=== PATIENT | female | born 1935 | race African-American/Black ===

== ENCOUNTER 2017-06-19 16:43 | Inpatient (IN) ==
[2017-06-19] MEDS ORDERED: SODIUM CHLORIDE 0.9% 1,000 ML IV STA (17:34)
--- NOTE | 2017-06-19 17:35 | Emergency Department Note ---
Arrival - Arrival Chief Complaint: Non-Specific Stated Complaint: hypotension Mode of Arrival: Stretcher Limitations: No Limitations Source: Patient, Old Records Reviewed, RN Notes Reviewed Time Seen by Provider: 06/19/17 17:16 - History of Present Illness HPI Narrative: The patient was transferred here from [facility] for hypotension. She was admitted to the hospital there last week for nausea and vomiting and decreased intake. She was discharged 4 days ago but went back to the hospital today for nausea and decreased intake. There she was found to be hypotensive. The patient denies any fever, cough, dyspnea, chest pain or other symptoms. Allergies/Adverse Reactions: Allergies Allergy/AdvReac Type Severity Reaction Status Date / Time peach Allergy Unknown/Unable Verified 10/15/16 15:44 to obtain Home Medications: Home Medications Medication Instructions Recorded Confirmed Type Gabapentin 600 mg PO TID 10/15/16 06/19/17 History Letrozole 2.5 mg PO DAILY 10/15/16 06/19/17 History Levothyroxine Sodium 50 mcg PO QAM 10/15/16 06/19/17 History Furosemide Tab [Lasix Tab] 20 mg PO DAILY 06/19/17 06/19/17 History Lisinopril 20 mg PO DAILY 06/19/17 06/19/17 History Sertraline HCl 50 mg PO DAILY 06/19/17 06/19/17 History metFORMIN [Glucophage] 500 mg PO BID 06/19/17 06/19/17 History Hydrocodone/Acetaminophen 1 each PO DAILY PRN #30 06/26/17 Rx [Hydrocodon-Acetaminophn 10-325] Morphine Sulfate [Morphine Sulfate 15 mg PO BID #60 06/26/17 Rx ER] Ondansetron HCl 4 mg PO Q8H PRN #100 06/26/17 Rx Temazepam 30 mg PO BEDTIME #60 06/26/17 Rx Medical,Surgical,& Family Hx - Social History Smoking Status: Never smoker Exam Physical Examination: GENERAL: Alert. No acute distress. HEENT: Normocephalic and atraumatic. There is no nasal drainage. No pharyngeal erythema or exudate. NECK: Normal inspection. Supple. No lymphadenopathy or meningismus. LUNGS: No respiratory distress. Clear to auscultation bilaterally, no wheezes, rales or rhonchi. HEART: Regular rate and rhythm. ABDOMEN: Soft, nontender and nondistended with normoactive bowel sounds. BACK: Normal inspection. SKIN: Color normal. Warm and dry. EXTREMITIES: Nontender. Normal range of motion. No pedal edema. NEUROLOGICAL/PSYCHIATRIC: Alert and oriented -3 with normal mood and affect. Cranial nerves normal. No motor or sensory deficit. Vital Signs: Vital Signs Temperature 96.1 F L 06/26/17 08:05 Pulse Rate 112 H 06/26/17 08:05 Respiratory Rate 20 06/26/17 08:05 Blood Pressure 112/51 06/26/17 08:05 O2 Sat by Pulse Oximetry 92 L 06/26/17 08:05 Course - Reevaluation(s) Reevaluation #1: The patient is still markedly hypotensive here. It appears that she has received at least 1500 cc of fluids at [facility] and probably another 500 cc or 1000 cc in route. I am going to go ahead and start her on Moses-Synephrine. Time: 17:49 Reevaluation #2: Patient's pressure is still low on Moses-Synephrine. We will go up again. I discussed the patient with the hospitalist service who will see her and admit. Time: 19:34 Results - Labs CBC & BMP: 06/22/17 04:25 06/22/17 04:25 - Impressions CT from January of this year shows: New small patchy nodular densities in the right upper lobe which could be inflammatory in nature or related to some new small pulmonary metastases which have developed since the comparison study. Chronic pulmonary embolus which is progressive compared to the previous study Continued osteoblastic metastatic disease. Please refer to the scheduled nuclear medicine bone scan from the same day for further information Critical Care Time Critical Care Time: Yes (Patient very hypotensive. Required close monitoring and pressors) Total Critical Care Time: 45 Disposition Clinical Impression: Acute renal failure, Hyperkalemia, Hypotension, Metastatic breast cancer Case discussed with: patient, patient's family Disposition: Still a Patient Condition: Guarded New Prescriptions: Rx's Medication Instructions Recorded Hydrocodone/Acetaminophen 1 each PO DAILY PRN #30 06/26/17 [Hydrocodon-Acetaminophn 10-325] Morphine Sulfate [Morphine Sulfate 15 mg PO BID #60 06/26/17 ER] Ondansetron HCl 4 mg PO Q8H PRN #100 06/26/17 Temazepam 30 mg PO BEDTIME #60 06/26/17 Time of Disposition: 19:35
[2017-06-19] MEDS ORDERED: PHENYLEPHRINE DRIP 40 MG/250 ML PREMIX IV ONE (17:56)
--- NOTE | 2017-06-19 18:05 | XRay Report ---
XR KUB Indication: Nausea vomiting Comparison: None available Findings: No free fluid or free air seen. The bowel gas pattern appears within normal limits. No abnormal calcifications are present. No other abnormality is identified. Impression: No evidence of acute process demonstrated. PROCEDURE INTERPRETED AT [facility] DEPARTMENT OF RADIOLOGY Final Report Signed by: Dr. Travis Streeter
--- NOTE | 2017-06-19 18:05 | XRay Report ---
XR chest 1V portable Indication: Dyspnea Comparison: CT chest 02 February 2017 Findings: The heart and mediastinum are normal in size and configuration. The pulmonary vascularity is normal in caliber. There are some prominent interstitial pulmonary density. No other lung infiltrates, effusions, pneumothorax or other abnormality is demonstrated. Impression: Prominent interstitial pulmonary density, could indicate pneumonitis. PROCEDURE INTERPRETED AT [facility] DEPARTMENT OF RADIOLOGY Final Report Signed by: Dr. Travis Streeter
[2017-06-19 18:20] LABS: Basophils % 0.6 % (0.0-0.8); Hematocrit 36.3 VOL% (35.7-47.0); Hemoglobin 11.6 GM/DL (12.0-16.0); Immature Granulocytes % 0.8 %; Immature Granulocytes Absolute 0.04 #; Lymphocytes # 1.7 10*3/uL (1.4-4.0); Mean Corpuscular Hemoglobin 30 PG (27-34); Mean Corpuscular Volume 92.8 FL (87-102); Mean Platelet Volume 11.3 FL (9.6-12.0); Monocytes # 0.2 10*3/uL (0.11-0.8); Monocytes % 3.9 % (1.7-12.7); NRBC # 0.03 10*3/uL; Neutrophils # 2.9 10*3/uL (1.4-7.4); Neutrophils % 59.7 % (38.7-73.9); Platelet Count 192 T/CUMM (130-400); Red Blood Count 3.91 MC/CUMM (3.8-5.5); Red Cell Distribution Width 17.6 % (9.3-17.3); White Blood Count 4.9 T/CUMM (4-12)
[2017-06-19] MEDS: PHENYLEPHRINE DRIP 40 MG/250 ML PREMIX IV SCH (18:21)
[2017-06-19 18:40] LABS: Albumin 2.9 G/DL (3.4-5.0); Bilirubin,Total 0.4 MG/DL (0.2-1.0); CKMB % 1.5 %; Calcium 7.8 MG/DL (8.5-10.1); Magnesium 1.8 MG/DL (1.8-2.4); Osmolality,Calculated 285.5 MOS/KG (273-304); Potassium 5.5 MMOL/L (3.5-5.1); Total Protein 6.4 G/DL (6.4-8.3)
[2017-06-19 18:41] LABS: Troponin I Only 0.251 NG/ML (0.00-0.045)
[2017-06-19] MEDS ORDERED: NOREPINEPHRINE 4 MG/4 ML VIAL IV ONE (20:06)
--- NOTE | 2017-06-19 20:17 | Hospitalist History & Physical ---
Assessment and Plan (1) Hypovolemic shock Status: Acute Assessment and plan: Patient looks dry, lethargic and profoundly hypotensive. No history of fever, white count is not high but patient is hypothermic so sepsis can not be completely ruled out.Other possibilities include-ACS, PE, opoiod over use Plan Admit to the unit Continue IVF Continue with pressors- patient now on Moses and Levophed IV Merrem/Vacomycin Panculture ABG Echocardiogram Narcan x1 Ddimer Serial cardiac enzymes Hold all bp meds for now. Current Visit: Yes (2) Acute renal failure Status: Acute Assessment and plan: Not sure what her underlying renal function is Plan IVF Avoid Nephrotoxics Renal USS Nephrology consult Current Visit: Yes (3) Hyperkalemia Status: Acute Assessment and plan: -mild, most likely due to renal failure Will give Kayexalatex1, repeat levels Current Visit: Yes (4) Cardiac enzymes elevated Status: Acute Assessment and plan: most likely due to profound hypotension -Serial cardiac enzymes -Echo, EKG cardiology to see Current Visit: Yes (5) Altered mental status Status: Acute Assessment and plan: most likely multifactorial- dehydration, possible sepsis to r/o Acute CVA vs metastasis from underlying breast cancer. Plan CT head Current Visit: Yes (6) Metastatic breast cancer Status: Acute Assessment and plan: s/p chemo. Plan: follow CT head to r/o mets. CT chest Current Visit: Yes (7) Diabetes Status: Acute Assessment and plan: continue to monitor blood sugar levels, place on SSC insulin and get an HbA1c level Current Visit: Yes History of Present Illness History of present illness: Ms. Mesa is a 81 year old female with a history of metastatic breast cancer s/ p chemo who was discharged from the hospital last week after she was admitted for nausea and vomiting. She was treated and sent back home two days after. According to family, she was a little better but stil light headed and this morning, she became progressively lethargic, somnolent and was brought to the ER for evaluation. Upon arrival, she was found to be profoundly weak, hypotensive in the 50s/40s. She was started on IVF boluses, Moses drip and when I saw her she was on 60mcgs with a systolic blood pressure in the 50s-60s after a total of about 2500cc of fluids. She had not made urine, she was moaning and groaning. It was difficult to get a history from her but family members present in the room affirmed her full code status. She will be getting more fluids and Levophed will be added. She may be intubated at the minimum for airway protection if condition worsens and admitted to the unit for closer monitoring. Her prognosis is guarded, family members are aware.We will also give some Narcan. Home Medications Medication Instructions Recorded Confirmed Type Gabapentin [Gabapentin] 600 mg PO TID 10/15/16 06/19/17 History Letrozole [Letrozole] 2.5 mg PO DAILY 10/15/16 06/19/17 History Levothyroxine Sodium 50 mcg PO QAM 10/15/16 06/19/17 History Simvastatin [Zocor] 40 mg PO DAILY 10/15/16 06/19/17 History Temazepam [Temazepam] 30 mg PO BEDTIME 10/15/16 06/19/17 History Aspirin EC Tab 81 mg PO DAILY 06/19/17 06/19/17 History Furosemide Tab [Lasix Tab] 20 mg PO DAILY 06/19/17 06/19/17 History HydrOXYzine PAMOATE CAP [Vistaril 25 mg PO Q8H PRN 06/19/17 06/19/17 History Cap] Hydrocodone/Acetaminophen 1 each PO DAILY PRN 06/19/17 06/19/17 History [Hydrocodon-Acetaminophn 10-325] Lisinopril 20 mg PO DAILY 06/19/17 06/19/17 History Morphine Sulfate [Morphine Sulfate 15 mg PO BID 06/19/17 06/19/17 History ER] Ondansetron HCl 4 mg PO Q8H PRN 06/19/17 06/19/17 History Propranolol HCl [Propranolol Tab] 40 mg PO BID 06/19/17 06/19/17 History Sertraline HCl 50 mg PO DAILY 06/19/17 06/19/17 History metFORMIN [Glucophage] 500 mg PO BID 06/19/17 06/19/17 History Allergies Allergy/AdvReac Type Severity Reaction Status Date / Time peach Allergy Unknown/Unable Verified 10/15/16 15:44 to obtain Medical,Surgical,& Family Hx - Medical History Cardio: History of: Hypertension - Social History Smoking Status: Never smoker Frequency of Alcohol Use: None Type of Drug Use: None Exam - Constitutional Vitals: Period Temp Pulse Resp BP Sys/Liu Pulse Ox Last 24 Hr 96.8 F-96.8 F 73-73 18-18 56-56/40-40 94 Results - Labs CBC & BMP: 06/19/17 17:55 06/19/17 17:55
[2017-06-19] MEDS ORDERED: NALOXONE 0.4 MG/ML VIAL IV STA (20:18)
[2017-06-19] MEDS ORDERED: SODIUM POLYSTYRENE SULFATE 15 GM/60 ML BOTTLE PO STA (20:21)
[2017-06-19] MEDS ORDERED: SODIUM POLYSTYRENE SULFATE 15 GM/60 ML BOTTLE ONE (20:40)
[2017-06-19] MEDS ORDERED: NALOXONE 0.4 MG/ML VIAL ONE (20:40)
[2017-06-19 20:50] LABS: ABG Base Excess -6.5 MMOL/L (-2.5-2.5); ABG Oxygen Saturation 93.2 % (95-100); ABG PO2 81.2 MM HG (80-95); ABG TCO2 22.4 MMOL/L (23-27); Allen Test Positive
[2017-06-19 20:52] LABS: ABG PCO2 69.3 MM HG (35-48); ABG PH 7.146 (7.35-7.45)
[2017-06-19] MEDS ORDERED: NOREPINEPHRINE 8 MG in SODIUM CHLORIDE 0.9% 242 ML IV SCH (21:00)
[2017-06-19] MEDS ORDERED: PHENYLEPHRINE DRIP 40 MG/250 ML PREMIX IV SCH (21:42)
[2017-06-19] MEDS ORDERED: ALBUTEROL 2.5 MG/3 ML NEB RESP TX PRN (21:42)
[2017-06-19] MEDS ORDERED: GLUCAGON 1 MG VIAL IM PRN (21:42)
[2017-06-19] MEDS ORDERED: DEXTROSE 50% 25 GM/50 ML VIAL IV PRN (21:42)
[2017-06-19] MEDS ORDERED: SODIUM CHLORIDE 0.9% 1,000 ML IV SCH (21:42)
[2017-06-19] MEDS: ENOXAPARIN 30 MG/0.3 ML SYRINGE SUBCUT SCH (22:32)
[2017-06-19] MEDS: PANTOPRAZOLE 40 MG VIAL IV SCH (22:33)
[2017-06-19] MEDS: MEROPENEM 500 MG in SODIUM CHLORIDE 0.9% 100 ML IV SCH (22:40)
[2017-06-19] MEDS ORDERED: VANCOMYCIN INJ 1,250 MG in SODIUM CHLORIDE 0.9% 250 ML IV SCH (23:00)
[2017-06-20] MEDS: INSULIN REGULAR 100 UNIT/ML SUBCUT SCH ×4 (00:48→18:02)
[2017-06-20 00:54] LABS: INR 1.2; PT Patient Result 13.3 SECS
[2017-06-20] MEDS ORDERED: NALOXONE 0.4 MG/ML VIAL IV ONE ×4 (01:56→19:20)
[2017-06-20] MEDS: NALOXONE 0.4 MG/ML VIAL IV SCH ×3 (02:03→07:22)
[2017-06-20 03:37] LABS: ABG Base Excess -6.6 MMOL/L (-2.5-2.5); ABG HCO3 21.8 MMOL/L (20-26); ABG Oxygen Saturation 90.8 % (95-100); ABG PCO2 57.1 MM HG (35-48); ABG PO2 65.8 MM HG (80-95); ABG TCO2 23.6 MMOL/L (23-27); Allen Test Positive
[2017-06-20 05:29] LABS: ABG Base Excess -7.1 MMOL/L (-2.5-2.5); ABG HCO3 18.6 MMOL/L (20-26); ABG Oxygen Saturation 90.3 % (95-100); ABG PO2 66.3 MM HG (80-95); ABG TCO2 19.8 MMOL/L (23-27); Allen Test Positive; Pt O2 Delivery Device BIPAP
[2017-06-20 05:31] LABS: ABG PH 7.207 (7.35-7.45)
[2017-06-20] MEDS: PHENYLEPHRINE DRIP 40 MG/250 ML PREMIX IV SCH ×3 (07:46→13:15)
[2017-06-20] MEDS ORDERED: LACTULOSE 20 GM/30 ML UDCUP PO ONE (08:01)
--- NOTE | 2017-06-20 09:06 | CT Report ---
CT brain Indication: Altered mental status Comparison: 16 Apr 2016 Technique: Axial CT imaging of the brain is performed without contrast with 3 mm increments. Findings: No evidence of hemorrhage, mass mass effect midline shift or acute infarct seen. There is moderate diffuse cerebral atrophy. There are areas of decreased density seen within the white matter. Otherwise the brain parenchyma attenuation and differentiation appears within normal limits. The ventricles and cisterns are normal in caliber. No cranial or skull base abnormality is identified. Impression: No evidence of acute process or interval change. This CT exam was performed using one or more the following dose reduction techniques: Automated exposure control, adjustment of the MA and/or KV according to patient size, or use of iterative reconstruction technique. PROCEDURE INTERPRETED AT [facility] DEPARTMENT OF RADIOLOGY Final Report Signed by: Dr. Travis Streeter
--- NOTE | 2017-06-20 09:16 | Hospitalist Progress Note ---
Assessment and Plan (1) Hypovolemic shock Status: Acute Assessment and plan: Patient is slowly improving with IVF ,pressors and Narcan. Plan Continue IVF, Moses Continue with IV Merrem/Vacomycin follow cultures, Echocardiogram, CT chest report, CBC Continue to hold all bp meds and opoiods for now. Current Visit: Yes (2) Acute renal failure Status: Acute Assessment and plan: Not sure what her underlying renal function is Plan Continue with IVF Avoid Nephrotoxics Follow Renal USS Follow Nephrology consult BMP in am Current Visit: Yes (3) Hyperkalemia Status: Acute Assessment and plan: -mild, most likely due to renal failure s/p Kayexalatex1, follow repeat levels Current Visit: Yes (4) Cardiac enzymes elevated Status: Acute Assessment and plan: most likely due to profound hypotension -Serial cardiac enzymes -Follow Echo, EKG cardiology to see Current Visit: Yes (5) Altered mental status Status: Acute Assessment and plan: most likely multifactorial- dehydration, possible sepsis, opoiod overuse . Improved with Narcan, IVF and IV antibiotics. CT head showed no acute changes or metastasis from underlying breast cancer. Plan Follow cultures Current Visit: Yes (6) Metastatic breast cancer Status: Acute Assessment and plan: s/p chemo.CT head showed no acute changes. Plan: follow CT chest Current Visit: Yes (7) Diabetes Status: Acute Assessment and plan: continue to monitor blood sugar levels, place on SSC insulin. HbA1c level- 6.7 Current Visit: Yes (8) Respiratory failure Status: Acute Assessment and plan: Acute Hypoxemic, Hypercapnic resp failure Plan continue with BIPAP and Iv antibiotics Follow CT chest and Pulmonology consult. Current Visit: Yes Hospitalist: Subjective Interval history: Patient is an 81yr old lady with metastatic breast cancer s/p chemo who is a full code admitted yesterday with AMS and severe hypotension. Her mental status improved with narcan in the ER but still remains on pressors. Levophed has been weaned off but she is still on about 160mcgs of Moses. This morning she was talking, had a BIPAP on which was placed overnight. Her blood pressure is the early 100s/40s-50s. Exam - Constitutional Vitals: Period Temp Pulse Resp BP Sys/Liu Pulse Ox Last 24 Hr 96.8 F-98 F 67-73 13-22 56-135/40-98 94-100 General appearance: no acute distress, morbidly obese, other (BIPAP in place) - Respiratory Respiratory exam: Present: decreased breath sounds - Cardiovascular Cardiovascular exam: Present: regular rate and rhythm - GI/Abdominal GI/Abdominal exam: Present: normal bowel sounds - Extremities Exam Extremities exam: Present: normal inspection - Neurological Exam Neurological exam: Present: alert, oriented X3 Results - Labs CBC & BMP: 06/19/17 17:55 06/19/17 17:55 Lab Results: I have reviewed the past 24 hour labs
--- NOTE | 2017-06-20 09:25 | EKG Report ---
Stationary ECG Study [facility] Test Date: 06/20/2017 9:09:41 AM Pat Name: HARLAN BOX Department: Room: 107 Gender: F Load Mixer: : [id number] Requested by: Shima Vizcaino Order Number: [id number] Reading MD: GISSEL JEREZ Intervals [place] Rate: 70 P: 61 ME: 156 QRS: 85 QRSD: 90 T: 218 QT: 404 QTc: 425 Interpretive Statements SINUS RHYTHM ST DEVIATION AND MODERATE T-WAVE ABNORMALITY Electronically Signed On 06-21-17 18:29:18 CDT by GISSEL JEERZ [email or web address]
--- NOTE | 2017-06-20 09:43 | Pulmonology Consult Note ---
Assessment and Plan (1) Acute renal failure Status: Acute Assessment and plan: The patient's creatinine is up to 3.3. Current Visit: Yes (2) Metastatic breast cancer Status: Acute Assessment and plan: Patient is undergoing chemotherapy for metastatic breast cancer. It is unclear if the lesions in her lungs are metastases or inflammation. Current Visit: Yes (3) Hypovolemic shock Status: Acute Assessment and plan: The patient is hypotensive and is getting fluids and pressors. Current Visit: Yes (4) Diabetes Status: Acute Assessment and plan: Her glucose is 126 yesterday. Current Visit: Yes (5) Respiratory failure Status: Acute Assessment and plan: The patient is overweight and does have some CO2 retention. She looks comfortable on BiPAP. She does have bilateral infiltrates. Current Visit: Yes (6) Bilateral pulmonary infiltrates on chest x-ray Status: Acute Assessment and plan: The patient has bilateral infiltrates that could be pulmonary metastasis or inflammation. She will be covered for infection and will add steroids. She certainly could do poorly. Current Visit: Yes History of Present Illness Chief complaint: Shortness of breath History of present illness: Ms. Mesa is a 81 year old black female that has a history of metastatic breast cancer and is followed by Dr. Boo. She says she is only on oral therapy for breast cancer. She is a lifetime non-smoker. She has no history of previous lung disease but does have hypertension. She is also a diabetic. Last week she apparently had nausea and vomiting and was dehydrated and got some fluids. She came in yesterday with lethargy and weakness and has been significantly hypotensive. She has worsening renal failure and is requiring pressors now. She does have bilateral infiltrates on her CT. She does not think she has had any fever or increased sputum production. She was taken a lot of medicines and did require Narcan yesterday. She is now on BiPAP. She says she is getting her breath okay and is awake. She looks like she is breathing comfortably on BiPAP. Home Medications Medication Instructions Recorded Confirmed Type Gabapentin [Gabapentin] 600 mg PO TID 10/15/16 06/19/17 History Letrozole [Letrozole] 2.5 mg PO DAILY 10/15/16 06/19/17 History Levothyroxine Sodium 50 mcg PO QAM 10/15/16 06/19/17 History Simvastatin [Zocor] 40 mg PO DAILY 10/15/16 06/19/17 History Temazepam [Temazepam] 30 mg PO BEDTIME 10/15/16 06/19/17 History Aspirin EC Tab 81 mg PO DAILY 06/19/17 06/19/17 History Furosemide Tab [Lasix Tab] 20 mg PO DAILY 06/19/17 06/19/17 History HydrOXYzine PAMOATE CAP [Vistaril 25 mg PO Q8H PRN 06/19/17 06/19/17 History Cap] Hydrocodone/Acetaminophen 1 each PO DAILY PRN 06/19/17 06/19/17 History [Hydrocodon-Acetaminophn 10-325] Lisinopril 20 mg PO DAILY 06/19/17 06/19/17 History Morphine Sulfate [Morphine Sulfate 15 mg PO BID 06/19/17 06/19/17 History ER] Ondansetron HCl 4 mg PO Q8H PRN 06/19/17 06/19/17 History Propranolol HCl [Propranolol Tab] 40 mg PO BID 06/19/17 06/19/17 History Sertraline HCl 50 mg PO DAILY 06/19/17 06/19/17 History metFORMIN [Glucophage] 500 mg PO BID 06/19/17 06/19/17 History Allergies Allergy/AdvReac Type Severity Reaction Status Date / Time peach Allergy Unknown/Unable Verified 10/15/16 15:44 to obtain - Constitutional Constitutional: Present: fatigue, weakness. Absent: chills, fever(s) - EENT Eyes: Absent: loss of vision Ears: Absent: decreased hearing Nose, mouth and throat: Absent: dysphagia, headache(s), sinus pressure - Cardiovascular Cardiovascular: Present: chest pain at rest, dyspnea - Respiratory Respiratory: Present: cough. Absent: wheezing, change in phlegm color - Gastrointestinal Gastrointestinal: Present: nausea, vomiting. Absent: abdominal pain, change in bowel habits - Genitourinary Genitourinary: Absent: difficulty urinating, hematuria - Musculoskeletal Musculoskeletal: Present: muscle weakness. Absent: arthralgias - Neurological Neurological: Absent: abnormal speech, focal weakness Exam (Pulmonay) H&P - Constitutional Vitals: Period Temp Pulse Resp BP Sys/Liu Pulse Ox Last 24 Hr 96.8 F-98 F 67-73 13-22 56-135/40-98 94-100 General appearance: mild distress (The patient is responding okay and looks comfortable on BiPAP.), morbidly obese - Head Head exam: Present: normal inspection, normocephalic - Eye Eye exam: Present: EOMI. Absent: scleral icterus Pupils: Present: NATE - ENT ENT exam: Present: normal exam - Neck Neck exam: Absent: lymphadenopathy, thyromegaly - Respiratory Respiratory exam: Present: rales, rhonchi, other (Patient has fair breath sounds bilaterally with rales or rhonchi.) - Cardiovascular Cardiovascular exam: Present: regular rate and rhythm. Absent: gallop, systolic murmur - GI/Abdominal GI/Abdominal exam: Present: distended, hypoactive bowel sounds, soft. Absent: organomegaly, tenderness - Extremities Exam Extremities exam: Absent: calf tenderness, edema - Neurological Exam Neurological exam: Present: alert, oriented X3 - Psychiatric Psychiatric exam: Present: normal affect - Skin Skin exam: Present: warm, dry Medical,Surgical,& Family Hx - Medical History Cardio: History of: Hypertension Endocrine: History of: Diabetes Mellitus (NIDDM) Respiratory: History of: Obstructive Sleep Apnea Other: History of: Cancer (breast) - Surgical History Neurologic Surgeries: Patient denies: Neurologic Surgery - Family History Family History: Reports;: Family Cancer, Family Heart Disease, Family Hypertension - Social History Smoking Status: Never smoker Frequency of Alcohol Use: None Type of Drug Use: None Results - Labs CBC & BMP: 06/19/17 17:55 06/19/17 17:55 Labs: Her PO2 66 with a PCO2 of 54 and a pH of 7.2 - Diagnostic Findings Procedure: Chest x-ray: image reviewed by me, report reviewed by me (Chest x- ray shows minimal patchy infiltrates bilaterally.), CT - chest: image reviewed by me, report reviewed by me (There is marked increased nodular infiltrates in both lungs.)
--- NOTE | 2017-06-20 09:47 | Ultrasound Report ---
Renal ultrasound Indication: Acute renal failure Comparison: None available Findings: Kidneys are normal in size. Simple appearing cyst is present left kidney 2.5 x 2.3 x 2.0 cm. No hydronephrosis or nephrolithiasis is seen. The right renal length is 10.5 cm. The left renal length is 10.4 cm. No free fluid or other abnormality is seen. Impression: Simple appearing left renal cyst. No other evidence of abnormality demonstrated. Ultrasound images stored and captured. PROCEDURE INTERPRETED AT [facility] DEPARTMENT OF RADIOLOGY Final Report Signed by: Dr. Travis Streeter
--- NOTE | 2017-06-20 11:03 | CT Report ---
CT chest wo con Indication: Metastatic disease Comparison: 02 February 2017 Technique: Axial CT imaging of the chest was done at 3 mm intervals with intravenous contrast. Contrast dose was Omnipaque 350. Findings: Bilateral lateral pulmonary air space densities are present in both upper and lower lobes, increased from previous exam. Small effusion is present on the left. The most prominent nodular appearing area is in the right upper lobe and measures up to 1.7 cm in size No effusion or pneumothorax is seen. Sclerotic bony lesions are present similar to previous exam. The heart, mediastinum and great vessels appear within normal limits. Gallstones are present. No other abnormality is identified. Impression: Multiple increase pulmonary densities, some appear nodular and some interstitial could indicate malignancy, underlying pneumonia cannot be excluded. Cholelithiasis. Low density areas in the liver poorly defined likely indicate hepatic metastatic disease. This CT exam was performed using one or more the following dose reduction techniques: Automated exposure control, adjustment of the MA and/or KV according to patient size, or use of iterative reconstruction technique. PROCEDURE INTERPRETED AT [facility] DEPARTMENT OF RADIOLOGY Final Report Signed by: Dr. Travis Streeter
[2017-06-20] MEDS: MEROPENEM 500 MG in SODIUM CHLORIDE 0.9% 100 ML IV SCH ×2 (11:06→21:10)
[2017-06-20 11:17] LABS: Basophils % 0.5 % (0.0-0.8); Eosinophils % 0.2 % (0.00-10.9); Hematocrit 35.8 VOL% (35.7-47.0); Hemoglobin 11.3 GM/DL (12.0-16.0); Immature Granulocytes % 0.8 %; Immature Granulocytes Absolute 0.05 #; Lymphocytes # 2.3 10*3/uL (1.4-4.0); Lymphocytes % 38.2 % (21.3-54.2); Mean Corpuscular HGB Conc 31.6 GM/DL (32-36); Mean Corpuscular Hemoglobin 30 PG (27-34); Mean Corpuscular Volume 94.7 FL (87-102); Mean Platelet Volume 9.7 FL (9.6-12.0); Monocytes # 0.2 10*3/uL (0.11-0.8); Monocytes % 3.7 % (1.7-12.7); NRBC # 0.03 10*3/uL; Neutrophils # 3.4 10*3/uL (1.4-7.4); Neutrophils % 56.6 % (38.7-73.9); Platelet Count 168 T/CUMM (130-400); Red Blood Count 3.78 MC/CUMM (3.8-5.5); Red Cell Distribution Width 17.8 % (9.3-17.3)
--- NOTE | 2017-06-20 11:41 | Nephrology Consult Note ---
History of Present Illness Chief complaint: SOB, hypotension History of present illness: Ms. Mesa is a 81 year old female with recent hx of N/V, poor po intake discharged and readmitted for same. Hypotensive with MAPs <60 for at least 6 hrs on admission here, probably longer prior to transfer. Requiring pressors to maintain MAPs now. Recent (3 months) PET scan revealed progression of breast cancer metastatic osteoblastic bone lesions, lung mets, bony mets (ribs, vertebrae, pelvis). Chronic pulmonary emboli. Elevated PCO2 on bipap on interview/exam. She pulled her BiPAP off during interview. Son at bedside. Creatinine 3.3 for eGFR 17cc/min by CKD EPI formula. Baseline creatinine 1.7 in Sep 2016 for CKD stage 3, eGFR 43cc/min. K 5.5. PMHx DM2 Home Medications Medication Instructions Recorded Confirmed Type Gabapentin [Gabapentin] 600 mg PO TID 10/15/16 06/19/17 History Letrozole [Letrozole] 2.5 mg PO DAILY 10/15/16 06/19/17 History Levothyroxine Sodium 50 mcg PO QAM 10/15/16 06/19/17 History Simvastatin [Zocor] 40 mg PO DAILY 10/15/16 06/19/17 History Temazepam [Temazepam] 30 mg PO BEDTIME 10/15/16 06/19/17 History Aspirin EC Tab 81 mg PO DAILY 06/19/17 06/19/17 History Furosemide Tab [Lasix Tab] 20 mg PO DAILY 06/19/17 06/19/17 History HydrOXYzine PAMOATE CAP [Vistaril 25 mg PO Q8H PRN 06/19/17 06/19/17 History Cap] Hydrocodone/Acetaminophen 1 each PO DAILY PRN 06/19/17 06/19/17 History [Hydrocodon-Acetaminophn 10-325] Lisinopril 20 mg PO DAILY 06/19/17 06/19/17 History Morphine Sulfate [Morphine Sulfate 15 mg PO BID 06/19/17 06/19/17 History ER] Ondansetron HCl 4 mg PO Q8H PRN 06/19/17 06/19/17 History Propranolol HCl [Propranolol Tab] 40 mg PO BID 06/19/17 06/19/17 History Sertraline HCl 50 mg PO DAILY 06/19/17 06/19/17 History metFORMIN [Glucophage] 500 mg PO BID 06/19/17 06/19/17 History Allergies Allergy/AdvReac Type Severity Reaction Status Date / Time peach Allergy Unknown/Unable Verified 10/15/16 15:44 to obtain Medical,Surgical,& Family Hx - Medical History Cardio: History of: Hypertension Endocrine: History of: Diabetes Mellitus (NIDDM) Respiratory: History of: Obstructive Sleep Apnea Other: History of: Cancer (breast) - Surgical History Neurologic Surgeries: Patient denies: Neurologic Surgery - Family History Family History: Reports;: Family Cancer, Family Heart Disease, Family Hypertension - Social History Smoking Status: Never smoker Frequency of Alcohol Use: None Type of Drug Use: None Exam - Vital Signs Vital signs: Period Temp Pulse Resp BP Sys/Liu Pulse Ox Last 24 Hr 96.8 F-98 F 67-73 13-22 56-135/40-98 93-100 - General Appearance General appearance: obese, chronically ill (on BiPAP) EENT: ATNC, PERRL, mucous membranes dry, hearing intact, vision intact Neck: no JVD, no thyromegaly Respiratory: no kyphosis, clear Cardiology: no murmurs, no rub, no edema Gastrointestinal: normoactive bowel sounds, no tenderness Integumentary: no rash, warm and dry Neurologic: no focal deficit, no asterixis Musculoskeletal: no deformities, no erythema Psychiatric: agitated, cooperative Results - Labs CBC & BMP: 06/20/17 10:34 06/19/17 17:55 Assessment and Plan (1) Acute renal failure Problem details: Most likely ATN from hypotensive/ischemic ATN. No acute indication for dialysis. Respiratory acidosis not amenable to correction with dialysis. Status: Acute Assessment and plan: Poor candidate for chronic hemodialysis due to poor predicted one year survival. Conservative management. Current Visit: Yes (2) Hyperkalemia Problem details: Due to respiratory acidosis. Status: Acute Assessment and plan: Ventilate. Current Visit: Yes (3) Metastatic breast cancer Problem details: Poor prognosis, progressing. Status: Acute Current Visit: Yes (4) Hypovolemic shock Status: Acute Current Visit: Yes (5) Diabetes Status: Acute Current Visit: Yes
[2017-06-20] MEDS: methylPREDNISolone SOD SUC 40 MG/1 ML VIAL IV SCH ×2 (11:42→18:02)
[2017-06-20 11:50] LABS: Albumin 2.7 G/DL (3.4-5.0); Bilirubin,Total 0.5 MG/DL (0.2-1.0); Calcium 7.8 MG/DL (8.5-10.1); Magnesium 1.8 MG/DL (1.8-2.4); Osmolality,Calculated 286.4 MOS/KG (273-304); Potassium 5.8 MMOL/L (3.5-5.1)
[2017-06-20] MEDS: NOREPINEPHRINE 8 MG in SODIUM CHLORIDE 0.9% 242 ML IV SCH (12:48)
[2017-06-20 12:52] LABS: Hypochromasia 2+; Microcytosis 1+; Polychromasia Slight; Target Cells Slight
[2017-06-20] MEDS: SODIUM ACETATE 100 MEQ in DEXTROSE 5% 1,000 ML IV SCH (14:28)
[2017-06-20] MEDS: PHENYLEPHRINE INJ 80 MG in SODIUM CHLORIDE 0.9% 242 ML IV SCH ×3 (14:53→23:15)
--- NOTE | 2017-06-20 14:55 | ECHO Report ---
Laurita Mesa Exam Date: 06/20/2017 09:49 Referring Physician: Technologist: nAiyah Trevino Age: 81 Ht (in): 66 Wt (lb): 185 Gender: F Exam Location: [facility] Echo Indications: acute renal failure, hypokalemia, SOB, hypotension, Hx. Breast CA, hypovolemic shock, elevated cardia enzymez, diabetes BP: 104 / 49 HR: 68 Rhythm: Sinus Technical Quality: IMPRESSIONS Left ventricular ejection fraction is estimated at 50-55%. Mild concentric left ventricular hypertrophy with mild diastolic dysfunction. Moderate right heart enlargement. Moderate tricuspid valve regurgitation with severe pulmonary hypertension estimated at greater than 75 mmHg. Mild mitral valve regurgitation. MEASUREMENTS (Male / Female) Normal Values 2D ECHO LV Diastolic Diameter PLAX 3.0 cm 4.2 - 5.9 / 3.9 - 5.3 cm LV Systolic Diameter PLAX 2.1 cm LV Fractional Shortening PLAX 32.2 % IVS Diastolic Thickness 1.1 cm 0.6 - 1.0 / 0.6 - 0.9 cm LVPW Diastolic Thickness 1.1 cm 0.6 - 1.0 / 0.6 - 0.9 cm RV Internal Dim ED PLAX 4.2 cm Aortic Root Diameter 2.9 cm LA Systolic Diameter LX 3.6 cm 3.0 - 4.0 / 2.7 - 3.8 cm DOPPLER TR Peak Velocity 436.0 cm/s TR Peak Gradient 76.0 mmHg FINDINGS Left Ventricle Normal left ventricular cavity size. Mild concentric left ventricular hypertrophy with mild diastolic dysfunction. Left ventricular ejection fraction is estimated at 50-55% Right Ventricle Moderately increased right ventricular size. Right Atrium Moderately increased right atrial size. Left Atrium Moderately increased left atrial size. Mitral Valve Mildly thickened mitral valve. Mild mitral valve regurgitation. Aortic Valve The aortic valve is structurally normal. Tricuspid Valve Morphologically normal tricuspid valve. Moderate tricuspid valve regurgitation. Tricuspid regurgitation velocities suggest a PAP of 76.0mmHg + RAP. Pulmonic Valve Morphologically normal pulmonic valve. Trace pulmonary valve regurgitation. Pericardium No pericardial effusion. Aorta Normal size aortic root and proximal ascending aorta. Jhonny Valladares (Electronically Signed) Final Date: 20 June 2017 14:53
--- NOTE | 2017-06-20 15:01 | Cardiology Consult Note ---
Assessment and Plan (1) Cardiac enzymes elevated Status: Acute Assessment and plan: The patient has a trivial elevation in cardiac enzymes in the setting of prolonged hypovolemic shock in need of vasopressors and volume, acute renal failure, and hypoxia/hypercapnia. This is not an acute coronary syndrome. The patient's left ventricular function is normal. I think this mild abnormality is simply secondary to all of her other medical issues. Given all of her severe medical issues, her prognosis appears poor. Given her normal left ventricular function and other underlying issues, I do not think any specific cardiac workup is required for this right now, and I really do not have anything valuable to add from a cardiac standpoint. I would continue to treat her underlying problems and provide supportive care. I am going to drop off of her case. Please call if I can be of further assistance. Current Visit: Yes (2) Acute renal failure Problem details: Most likely ATN from hypotensive/ischemic ATN. No acute indication for dialysis. Respiratory acidosis not amenable to correction with dialysis. Status: Acute Assessment and plan: Management per nephrology. Current Visit: Yes (3) Altered mental status Status: Acute Assessment and plan: Likely multifactorial Current Visit: Yes (4) Bilateral pulmonary infiltrates on chest x-ray Status: Acute Current Visit: Yes (5) Diabetes Status: Acute Current Visit: Yes (6) Hyperkalemia Problem details: Due to respiratory acidosis. Status: Acute Assessment and plan: This is been treated. Current Visit: Yes (7) Hypovolemic shock Status: Acute Current Visit: Yes (8) Metastatic breast cancer Problem details: Poor prognosis, progressing. Status: Acute Assessment and plan: Management per oncology. Current Visit: Yes (9) Respiratory failure Status: Acute Current Visit: Yes (10) Moderate to severe pulmonary hypertension Status: Acute Assessment and plan: This is likely multifactorial related to the metastatic disease in her lungs, intrinsic lung disease, age, and/or her history of pulmonary thromboembolic disease. Current Visit: Yes History of Present Illness - Consult Narrative History of present illness: Ms. Mesa is a 81 year old female with a history of widely metastatic breast cancer, hypertension, hyperlipidemia, and diabetes who came into the hospital with profound weakness and hypotension. She had had some nausea and vomiting and volume depletion. She appeared to be in hypovolemic shock and also had significant prerenal azotemia. She was noted to be hypoxic and hypercapnic. She is currently in the intensive care unit on a CPAP mask. Recent evaluation of her cancer showed progression of metastatic bone lesions lung metastasis, and chronic pulmonary emboli. She is lethargic and somnolent and I really cannot get any history from her. History is obtained from the chart and the nursing staff. The patient has no known history of cardiac disease. However, she had cardiac enzymes drawn which were trivially elevated at around 0.2, in the setting of hypovolemic shock and acute renal failure with elevated creatinine. Her EKG did not show any acute changes. There was no report of the patient having any sort of cardiac specific symptoms. I reviewed the patient's echocardiogram and she has normal left ventricular systolic function. She does have an enlarged right heart and severe pulmonary hypertension. CC: Shima Vizcaino MD - Home Medications and Allergies Home Medications: Home Medications Medication Instructions Recorded Confirmed Type Gabapentin [Gabapentin] 600 mg PO TID 10/15/16 06/19/17 History Letrozole [Letrozole] 2.5 mg PO DAILY 10/15/16 06/19/17 History Levothyroxine Sodium 50 mcg PO QAM 10/15/16 06/19/17 History Simvastatin [Zocor] 40 mg PO DAILY 10/15/16 06/19/17 History Temazepam [Temazepam] 30 mg PO BEDTIME 10/15/16 06/19/17 History Aspirin EC Tab 81 mg PO DAILY 06/19/17 06/19/17 History Furosemide Tab [Lasix Tab] 20 mg PO DAILY 06/19/17 06/19/17 History HydrOXYzine PAMOATE CAP [Vistaril 25 mg PO Q8H PRN 06/19/17 06/19/17 History Cap] Hydrocodone/Acetaminophen 1 each PO DAILY PRN 06/19/17 06/19/17 History [Hydrocodon-Acetaminophn 10-325] Lisinopril 20 mg PO DAILY 06/19/17 06/19/17 History Morphine Sulfate [Morphine Sulfate 15 mg PO BID 06/19/17 06/19/17 History ER] Ondansetron HCl 4 mg PO Q8H PRN 06/19/17 06/19/17 History Propranolol HCl [Propranolol Tab] 40 mg PO BID 06/19/17 06/19/17 History Sertraline HCl 50 mg PO DAILY 06/19/17 06/19/17 History metFORMIN [Glucophage] 500 mg PO BID 06/19/17 06/19/17 History Allergies/Adverse Reactions: Allergies Allergy/AdvReac Type Severity Reaction Status Date / Time peach Allergy Unknown/Unable Verified 10/15/16 15:44 to obtain ROS unobtainable: due to mental status Medical,Surgical,& Family Hx - Medical History Cardio: History of: Hypertension Endocrine: History of: Diabetes Mellitus (NIDDM) Respiratory: History of: Obstructive Sleep Apnea Other: History of: Cancer (breast) - Surgical History Neurologic Surgeries: Patient denies: Neurologic Surgery - Family History Family History: Reports;: Family Cancer, Family Heart Disease, Family Hypertension - Social History Smoking Status: Never smoker Frequency of Alcohol Use: None Type of Drug Use: None Physical Examination Vital Signs Temp Pulse Resp BP Pulse Ox 96.8 F L 73 18 56/40 94 L 06/19/17 16:55 06/19/17 16:55 06/19/17 16:55 06/19/17 16:55 06/19/17 16:55 Exam: General: Frail, elderly, chronically ill-appearing, drowsy on CPAP in the intensive care unit HEENT: Normocephalic, atraumatic Neck: Supple Neck, Midline Trachea Cardiac: Regular rhythm, 2/6 systolic murmur, no gallop, no rub Lungs: Coarse upper respiratory breath sounds Abdomen: Soft, obese, active Bowel Sounds, No Masses, No Pulsations/Bruits Skin: Normal color, no rash Extremities: No Clubbing, No Cyanosis, No Edema, Normal Upper Extr. Pulses Musculoskeletal: No acute abnormality noted Psychiatric: The patient is very drowsy so this is difficult to assess Result/EKG - Labs CBC & BMP: 06/20/17 10:34 06/20/17 10:34 Lab Results: I have reviewed the past 24 hour labs Labs: Laboratory Results - last 24 hr 06/19/17 06/19/17 06/19/17 17:55 17:55 17:55 WBC 4.9 RBC 3.91 Hgb 11.6 L Hct 36.3 MCV 92.8 MCH 30 MCHC 32.0 RDW 17.6 H Plt Count 192 MPV 11.3 Neut % (Auto) 59.7 Lymph % (Auto) 35.0 [place] % (Auto) 3.9 Eos % (Auto) 0.0 Baso % (Auto) 0.6 Neut # (Auto) 2.9 Lymph # (Auto) 1.7 [place] # (Auto) 0.2 Eos # (Auto) 0.0 Baso # (Auto) 0.0 Immature Gran % 0.8 Nucleated RBC % 0.6 Immature Gran # 0.04 Nucleated RBCs # 0.03 Polychromasia Hypochromasia Microcytosis Target Cells INR PT Patient/Control Mix ABG pH ABG pCO2 ABG pO2 ABG HCO3 ABG Total CO2 ABG O2 Saturation ABG Base Excess FiO2 Sodium 139 Potassium 5.5 H Chloride 105 Carbon Dioxide 23 Anion Gap 16.5 H BUN 31 H Creatinine 3.30 H GFR Calculation 0 BUN/Creatinine Ratio 9.00 Glucose 126 H POC Glucose Hemoglobin A1c Calculated Osmolality 285.5 Lactic Acid Calcium 7.8 L Magnesium 1.8 Total Bilirubin 0.40 AST 65 H ALT 23 Alkaline Phosphatase 178 H Ammonia Total Creatine Kinase 337 H CK-MB (CK-2) 5.1 H CK and CKMB Interp 1.5 Troponin I 0.251 H B-Natriuretic Peptide 1529 H Total Protein 6.4 Albumin 2.9 L Globulin 3.5 Albumin/Globulin Ratio 0.8 L Triglycerides Cholesterol LDL Cholesterol VLDL Cholesterol HDL Cholesterol Heart Disease Risk Ratio Amylase 31 Lipase 80.0 TSH 3rd Generation Ur Random Creatinine Ur Random Urea Nitrogn 06/19/17 06/19/17 06/19/17 17:55 20:44 23:25 WBC RBC Hgb Hct MCV MCH MCHC RDW Plt Count MPV Neut % (Auto) Lymph % (Auto) [place] % (Auto) Eos % (Auto) Baso % (Auto) Neut # (Auto) Lymph # (Auto) [place] # (Auto) Eos # (Auto) Baso # (Auto) Immature Gran % Nucleated RBC % Immature Gran # Nucleated RBCs # Polychromasia Hypochromasia Microcytosis Target Cells INR PT Patient/Control Mix ABG pH 7.146 L* ABG pCO2 69.3 H* ABG pO2 81.2 ABG HCO3 19.0 L ABG Total CO2 22.4 L ABG O2 Saturation 93.2 L ABG Base Excess -6.5 L FiO2 32.00 Sodium Potassium Chloride Carbon Dioxide Anion Gap BUN Creatinine GFR Calculation BUN/Creatinine Ratio Glucose POC Glucose 158 H Hemoglobin A1c Calculated Osmolality Lactic Acid 2.3 H Calcium Magnesium Total Bilirubin AST ALT Alkaline Phosphatase Ammonia Total Creatine Kinase CK-MB (CK-2) CK and CKMB Interp Troponin I B-Natriuretic Peptide Total Protein Albumin Globulin Albumin/Globulin Ratio Triglycerides Cholesterol LDL Cholesterol VLDL Cholesterol HDL Cholesterol Heart Disease Risk Ratio Amylase Lipase TSH 3rd Generation Ur Random Creatinine Ur Random Urea Nitrogn 06/20/17 06/20/17 06/20/17 00:14 00:15 00:15 WBC RBC Hgb Hct MCV MCH MCHC RDW Plt Count MPV Neut % (Auto) Lymph % (Auto) [place] % (Auto) Eos % (Auto) Baso % (Auto) Neut # (Auto) Lymph # (Auto) [place] # (Auto) Eos # (Auto) Baso # (Auto) Immature Gran % Nucleated RBC % Immature Gran # Nucleated RBCs # Polychromasia Hypochromasia Microcytosis Target Cells INR 1.2 PT Patient/Control Mix 13.3 ABG pH ABG pCO2 ABG pO2 ABG HCO3 ABG Total CO2 ABG O2 Saturation ABG Base Excess FiO2 Sodium Potassium Chloride Carbon Dioxide Anion Gap BUN Creatinine GFR Calculation BUN/Creatinine Ratio Glucose POC Glucose Hemoglobin A1c 6.7 H Calculated Osmolality Lactic Acid Calcium Magnesium Cancelled Total Bilirubin AST ALT Alkaline Phosphatase Ammonia 58 H Total Creatine Kinase CK-MB (CK-2) CK and CKMB Interp Troponin I Cancelled B-Natriuretic Peptide Total Protein Albumin Globulin Albumin/Globulin Ratio Triglycerides Cancelled Cholesterol Cancelled LDL Cholesterol Cancelled VLDL Cholesterol Cancelled HDL Cholesterol Cancelled Heart Disease Risk Ratio Cancelled Amylase Lipase TSH 3rd Generation Cancelled Ur Random Creatinine Ur Random Urea Nitrogn 06/20/17 06/20/17 06/20/17 03:10 03:59 05:17 WBC RBC Hgb Hct MCV MCH MCHC RDW Plt Count MPV Neut % (Auto) Lymph % (Auto) [place] % (Auto) Eos % (Auto) Baso % (Auto) Neut # (Auto) Lymph # (Auto) [place] # (Auto) Eos # (Auto) Baso # (Auto) Immature Gran % Nucleated RBC % Immature Gran # Nucleated RBCs # Polychromasia Hypochromasia Microcytosis Target Cells INR PT Patient/Control Mix ABG pH 7.200 L* ABG pCO2 57.1 H ABG pO2 65.8 L ABG HCO3 21.8 ABG Total CO2 23.6 ABG O2 Saturation 90.8 L ABG Base Excess -6.6 L FiO2 30.00 Sodium Cancelled Potassium Cancelled Chloride Cancelled Carbon Dioxide Cancelled Anion Gap Cancelled BUN Cancelled Creatinine Cancelled GFR Calculation Cancelled BUN/Creatinine Ratio Cancelled Glucose Cancelled POC Glucose 158 H Hemoglobin A1c Calculated Osmolality Cancelled Lactic Acid Cancelled Calcium Cancelled Magnesium Total Bilirubin Cancelled AST Cancelled ALT Cancelled Alkaline Phosphatase Cancelled Ammonia Total Creatine Kinase CK-MB (CK-2) CK and CKMB Interp Troponin I Cancelled B-Natriuretic Peptide Total Protein Cancelled Albumin Cancelled Globulin Cancelled Albumin/Globulin Ratio Cancelled Triglycerides Cholesterol LDL Cholesterol VLDL Cholesterol HDL Cholesterol Heart Disease Risk Ratio Amylase Lipase TSH 3rd Generation Ur Random Creatinine Ur Random Urea Nitrogn 06/20/17 06/20/17 06/20/17 05:20 10:20 10:20 WBC RBC Hgb Hct MCV MCH MCHC RDW Plt Count MPV Neut % (Auto) Lymph % (Auto) [place] % (Auto) Eos % (Auto) Baso % (Auto) Neut # (Auto) Lymph # (Auto) [place] # (Auto) Eos # (Auto) Baso # (Auto) Immature Gran % Nucleated RBC % Immature Gran # Nucleated RBCs # Polychromasia Hypochromasia Microcytosis Target Cells INR PT Patient/Control Mix ABG pH 7.207 L* D ABG pCO2 54.0 H ABG pO2 66.3 L ABG HCO3 18.6 L ABG Total CO2 19.8 L ABG O2 Saturation 90.3 L ABG Base Excess -7.1 L FiO2 30.00 Sodium Potassium Chloride Carbon Dioxide Anion Gap BUN Creatinine GFR Calculation BUN/Creatinine Ratio Glucose POC Glucose Hemoglobin A1c Calculated Osmolality Lactic Acid Calcium Magnesium Total Bilirubin AST ALT Alkaline Phosphatase Ammonia Total Creatine Kinase CK-MB (CK-2) CK and CKMB Interp Troponin I B-Natriuretic Peptide Total Protein Albumin Globulin Albumin/Globulin Ratio Triglycerides Cholesterol LDL Cholesterol VLDL Cholesterol HDL Cholesterol Heart Disease Risk Ratio Amylase Lipase TSH 3rd Generation Ur Random Creatinine 266 Ur Random Urea Nitrogn 133 06/20/17 06/20/17 06/20/17 10:34 10:34 10:34 WBC 6.0 RBC 3.78 L Hgb 11.3 L Hct 35.8 MCV 94.7 MCH 30 MCHC 31.6 L RDW 17.8 H Plt Count 168 MPV 9.7 Neut % (Auto) 56.6 Lymph % (Auto) 38.2 [place] % (Auto) 3.7 Eos % (Auto) 0.2 Baso % (Auto) 0.5 Neut # (Auto) 3.4 Lymph # (Auto) 2.3 [place] # (Auto) 0.2 Eos # (Auto) 0.0 Baso # (Auto) 0.0 Immature Gran % 0.8 Nucleated RBC % 0.5 Immature Gran # 0.05 Nucleated RBCs # 0.03 Polychromasia Slight Hypochromasia 2+ Microcytosis 1+ Target Cells Slight INR PT Patient/Control Mix ABG pH ABG pCO2 ABG pO2 ABG HCO3 ABG Total CO2 ABG O2 Saturation ABG Base Excess FiO2 Sodium 140 Potassium 5.8 H Chloride 107 Carbon Dioxide 22 Anion Gap 16.8 H BUN 34 H Creatinine 3.60 H GFR Calculation 15 BUN/Creatinine Ratio 9.00 Glucose 92 POC Glucose Hemoglobin A1c Calculated Osmolality 286.4 Lactic Acid Calcium 7.8 L Magnesium 1.8 Total Bilirubin 0.50 AST 66 H ALT 22 Alkaline Phosphatase 156 H Ammonia Total Creatine Kinase CK-MB (CK-2) CK and CKMB Interp Troponin I B-Natriuretic Peptide 4297 H Total Protein 6.0 L Albumin 2.7 L Globulin 3.3 Albumin/Globulin Ratio 0.8 L Triglycerides Cholesterol LDL Cholesterol VLDL Cholesterol HDL Cholesterol Heart Disease Risk Ratio Amylase Lipase TSH 3rd Generation Ur Random Creatinine Ur Random Urea Nitrogn 06/20/17 11:34 WBC RBC Hgb Hct MCV MCH MCHC RDW Plt Count MPV Neut % (Auto) Lymph % (Auto) [place] % (Auto) Eos % (Auto) Baso % (Auto) Neut # (Auto) Lymph # (Auto) [place] # (Auto) Eos # (Auto) Baso # (Auto) Immature Gran % Nucleated RBC % Immature Gran # Nucleated RBCs # Polychromasia Hypochromasia Microcytosis Target Cells INR PT Patient/Control Mix ABG pH ABG pCO2 ABG pO2 ABG HCO3 ABG Total CO2 ABG O2 Saturation ABG Base Excess FiO2 Sodium Potassium Chloride Carbon Dioxide Anion Gap BUN Creatinine GFR Calculation BUN/Creatinine Ratio Glucose POC Glucose 98 Hemoglobin A1c Calculated Osmolality Lactic Acid Calcium Magnesium Total Bilirubin AST ALT Alkaline Phosphatase Ammonia Total Creatine Kinase CK-MB (CK-2) CK and CKMB Interp Troponin I B-Natriuretic Peptide Total Protein Albumin Globulin Albumin/Globulin Ratio Triglycerides Cholesterol LDL Cholesterol VLDL Cholesterol HDL Cholesterol Heart Disease Risk Ratio Amylase Lipase TSH 3rd Generation Ur Random Creatinine Ur Random Urea Nitrogn - EKG EKG results: interpreted by me
[2017-06-20] MEDS ORDERED: NALOXONE 0.4 MG/ML VIAL IV PRN (21:41)
[2017-06-20] MEDS: ENOXAPARIN 30 MG/0.3 ML SYRINGE SUBCUT SCH (21:50)
[2017-06-20] MEDS: PANTOPRAZOLE 40 MG VIAL IV SCH (21:50)
[2017-06-21] MEDS: INSULIN REGULAR 100 UNIT/ML SUBCUT SCH ×4 (00:15→19:11)
[2017-06-21] MEDS: methylPREDNISolone SOD SUC 40 MG/1 ML VIAL IV SCH ×2 (01:25→10:45)
[2017-06-21] MEDS: SODIUM ACETATE 100 MEQ in DEXTROSE 5% 1,000 ML IV SCH ×2 (04:16→18:16)
[2017-06-21 05:04] LABS: Calcium 7.4 MG/DL (8.5-10.1); Osmolality,Calculated 288.7 MOS/KG (273-304); Potassium 5.8 MMOL/L (3.5-5.1)
[2017-06-21 05:14] LABS: Basophils % 0.3 % (0.0-0.8); Hematocrit 39.1 VOL% (35.7-47.0); Hemoglobin 12.1 GM/DL (12.0-16.0); Immature Granulocytes % 1.7 %; Immature Granulocytes Absolute 0.06 #; Lymphocytes # 0.7 10*3/uL (1.4-4.0); Lymphocytes % 19.6 % (21.3-54.2); Mean Corpuscular HGB Conc 30.9 GM/DL (32-36); Mean Corpuscular Hemoglobin 30 PG (27-34); Mean Corpuscular Volume 96.5 FL (87-102); Mean Platelet Volume 10.2 FL (9.6-12.0); Monocytes # 0.1 10*3/uL (0.11-0.8); Monocytes % 2.8 % (1.7-12.7); NRBC # 0.06 10*3/uL; Neutrophils # 2.8 10*3/uL (1.4-7.4); Neutrophils % 75.6 % (38.7-73.9); Platelet Count 142 T/CUMM (130-400); Red Blood Count 4.05 MC/CUMM (3.8-5.5); Red Cell Distribution Width 18.4 % (9.3-17.3); White Blood Count 3.6 T/CUMM (4-12)
[2017-06-21 05:31] LABS: Hypochromasia 1+; Lymphocytes 20 % (20-55); Nucleated Red Blood Cells 1 (0-5); Segmented Neutrophils 78 % (50-85); Total Cells Counted 100
[2017-06-21 05:32] LABS: Microcytosis 1+; Ovalocytes Slight; Target Cells Slight
[2017-06-21 05:33] LABS: Platelet Estimate Adequate
--- NOTE | 2017-06-21 06:35 | Cardiology Progress Note ---
Cardiology - PN: Subj Interval history: Cardiology note 81-year-old woman admitted with hypovolemia acute renal failure on chronic renal failure and metastatic breast cancer. Currently on BiPAP O2 sat 95 on 30% FiO2 Blood pressure 102/70 on 125 mics phenylephrine and 5 mics of Levophed Telemetry shows sinus rhythm in the 70s Very lethargic Minimal urine output during the night Regular rhythm but quiet precordium Decreased breath sounds few basilar crackles Abdomen soft benign Recent echo showed ejection fraction of 50-55% with mild LVH, dilated right- sided chambers with severe TR PA pressure 75, no effusion, mild MR Lab data today White count 3.6 hemoglobin 12.1 hematocrit 39.1 Sodium 138 potassium 5.8 chloride 108 CO2 16 BUN 39 creatinine 4.0 glucose 194 Trivial troponin. BNP level 4297 Impression Metastatic breast cancer Acute renal failure superimposed on chronic renal failure. Baseline creatinine 1.05 October 2017. Creatinine today 4.0 with minimal urine output Hyperkalemia Diabetes Chronic pulmonary emboli with pulmonary hypertension EF 50-55% with mild LVH dilated right-sided chambers and severe TR PA pressure 75 Hypotension on pressors Plan BiPAP Wean pressors as tolerated Continue vancomycin and meropenem Cultures pending Exam (Progress Note) - Constitutional Vitals: Period Temp Pulse Resp BP Sys/Liu Pulse Ox Last 24 Hr 96.9 F-98.2 F 68-85 10-23 65-156/36-105 92-100 Result/EKG - Labs CBC & BMP: 06/21/17 04:17 06/21/17 04:17 Labs: Laboratory Results - last 24 hr 06/20/17 06/20/17 06/20/17 00:15 03:59 10:20 WBC RBC Hgb Hct MCV MCH MCHC RDW Plt Count MPV Neut % (Auto) Lymph % (Auto) Cooke % (Auto) Eos % (Auto) Baso % (Auto) Neut # (Auto) Lymph # (Auto) Cooke # (Auto) Eos # (Auto) Baso # (Auto) Total Counted Immature Gran % Nucleated RBC % Immature Gran # Segmented Neutrophils Lymphocytes Monocytes Nucleated RBCs Nucleated RBCs # Platelet Estimate Polychromasia Hypochromasia Microcytosis Target Cells Ovalocytes Sodium Cancelled Potassium Cancelled Chloride Cancelled Carbon Dioxide Cancelled Anion Gap Cancelled BUN Cancelled Creatinine Cancelled GFR Calculation Cancelled BUN/Creatinine Ratio Cancelled Glucose Cancelled POC Glucose Calculated Osmolality Cancelled Lactic Acid Cancelled Calcium Cancelled Magnesium Cancelled Total Bilirubin Cancelled AST Cancelled ALT Cancelled Alkaline Phosphatase Cancelled Troponin I Cancelled Cancelled B-Natriuretic Peptide Total Protein Cancelled Albumin Cancelled Globulin Cancelled Albumin/Globulin Ratio Cancelled Triglycerides Cancelled Cholesterol Cancelled LDL Cholesterol Cancelled VLDL Cholesterol Cancelled HDL Cholesterol Cancelled Heart Disease Risk Ratio Cancelled TSH 3rd Generation Cancelled Ur Random Creatinine 266 Ur Random Urea Nitrogn 06/20/17 06/20/17 06/20/17 10:20 10:34 10:34 WBC RBC Hgb Hct MCV MCH MCHC RDW Plt Count MPV Neut % (Auto) Lymph % (Auto) Cooke % (Auto) Eos % (Auto) Baso % (Auto) Neut # (Auto) Lymph # (Auto) Cooke # (Auto) Eos # (Auto) Baso # (Auto) Total Counted Immature Gran % Nucleated RBC % Immature Gran # Segmented Neutrophils Lymphocytes Monocytes Nucleated RBCs Nucleated RBCs # Platelet Estimate Polychromasia Hypochromasia Microcytosis Target Cells Ovalocytes Sodium 140 Potassium 5.8 H Chloride 107 Carbon Dioxide 22 Anion Gap 16.8 H BUN 34 H Creatinine 3.60 H GFR Calculation 15 BUN/Creatinine Ratio 9.00 Glucose 92 POC Glucose Calculated Osmolality 286.4 Lactic Acid Calcium 7.8 L Magnesium 1.8 Total Bilirubin 0.50 AST 66 H ALT 22 Alkaline Phosphatase 156 H Troponin I B-Natriuretic Peptide 4297 H Total Protein 6.0 L Albumin 2.7 L Globulin 3.3 Albumin/Globulin Ratio 0.8 L Triglycerides Cholesterol LDL Cholesterol VLDL Cholesterol HDL Cholesterol Heart Disease Risk Ratio TSH 3rd Generation Ur Random Creatinine Ur Random Urea Nitrogn 133 06/20/17 06/20/17 06/20/17 10:34 11:34 17:52 WBC 6.0 RBC 3.78 L Hgb 11.3 L Hct 35.8 MCV 94.7 MCH 30 MCHC 31.6 L RDW 17.8 H Plt Count 168 MPV 9.7 Neut % (Auto) 56.6 Lymph % (Auto) 38.2 Cooke % (Auto) 3.7 Eos % (Auto) 0.2 Baso % (Auto) 0.5 Neut # (Auto) 3.4 Lymph # (Auto) 2.3 Cooke # (Auto) 0.2 Eos # (Auto) 0.0 Baso # (Auto) 0.0 Total Counted Immature Gran % 0.8 Nucleated RBC % 0.5 Immature Gran # 0.05 Segmented Neutrophils Lymphocytes Monocytes Nucleated RBCs Nucleated RBCs # 0.03 Platelet Estimate Polychromasia Slight Hypochromasia 2+ Microcytosis 1+ Target Cells Slight Ovalocytes Sodium Potassium Chloride Carbon Dioxide Anion Gap BUN Creatinine GFR Calculation BUN/Creatinine Ratio Glucose POC Glucose 98 192 H Calculated Osmolality Lactic Acid Calcium Magnesium Total Bilirubin AST ALT Alkaline Phosphatase Troponin I B-Natriuretic Peptide Total Protein Albumin Globulin Albumin/Globulin Ratio Triglycerides Cholesterol LDL Cholesterol VLDL Cholesterol HDL Cholesterol Heart Disease Risk Ratio TSH 3rd Generation Ur Random Creatinine Ur Random Urea Nitrogn 06/20/17 06/21/17 06/21/17 23:36 04:17 04:17 WBC 3.6 L D RBC 4.05 Hgb 12.1 Hct 39.1 MCV 96.5 MCH 30 MCHC 30.9 L RDW 18.4 H Plt Count 142 MPV 10.2 Neut % (Auto) 75.6 H Lymph % (Auto) 19.6 L Cooke % (Auto) 2.8 Eos % (Auto) 0.0 Baso % (Auto) 0.3 Neut # (Auto) 2.8 Lymph # (Auto) 0.7 L Cooke # (Auto) 0.1 L Eos # (Auto) 0.0 Baso # (Auto) 0.0 Total Counted 100 Immature Gran % 1.7 Nucleated RBC % 1.7 Immature Gran # 0.06 Segmented Neutrophils 78 Lymphocytes 20 Monocytes 2 Nucleated RBCs 1 Nucleated RBCs # 0.06 Platelet Estimate Adequate Polychromasia Hypochromasia 1+ Microcytosis 1+ Target Cells Slight Ovalocytes Slight Sodium 138 Potassium 5.8 H Chloride 108 H Carbon Dioxide 16 L Anion Gap 19.8 H BUN 39 H Creatinine 4.00 H GFR Calculation 14 BUN/Creatinine Ratio 9.00 Glucose 194 H POC Glucose 231 H Calculated Osmolality 288.7 Lactic Acid Calcium 7.4 L Magnesium Total Bilirubin AST ALT Alkaline Phosphatase Troponin I B-Natriuretic Peptide Total Protein Albumin Globulin Albumin/Globulin Ratio Triglycerides Cholesterol LDL Cholesterol VLDL Cholesterol HDL Cholesterol Heart Disease Risk Ratio TSH 3rd Generation Ur Random Creatinine Ur Random Urea Nitrogn 06/21/17 06:27 WBC RBC Hgb Hct MCV MCH MCHC RDW Plt Count MPV Neut % (Auto) Lymph % (Auto) Cooke % (Auto) Eos % (Auto) Baso % (Auto) Neut # (Auto) Lymph # (Auto) [place]oke # (Auto) Eos # (Auto) Baso # (Auto) Total Counted Immature Gran % Nucleated RBC % Immature Gran # Segmented Neutrophils Lymphocytes Monocytes Nucleated RBCs Nucleated RBCs # Platelet Estimate Polychromasia Hypochromasia Microcytosis Target Cells Ovalocytes Sodium Potassium Chloride Carbon Dioxide Anion Gap BUN Creatinine GFR Calculation BUN/Creatinine Ratio Glucose POC Glucose 256 H Calculated Osmolality Lactic Acid Calcium Magnesium Total Bilirubin AST ALT Alkaline Phosphatase Troponin I B-Natriuretic Peptide Total Protein Albumin Globulin Albumin/Globulin Ratio Triglycerides Cholesterol LDL Cholesterol VLDL Cholesterol HDL Cholesterol Heart Disease Risk Ratio TSH 3rd Generation Ur Random Creatinine Ur Random Urea Nitrogn
--- NOTE | 2017-06-21 07:25 | Oncology Consult Note ---
Assessment and Plan - Time spent with patient Time spent with patient: Greater than 30 minutes (1) Metastatic breast cancer Problem details: Poor prognosis, progressing. Status: Acute Assessment and plan: I will attempt to reach out to Ms. Mesa sister who is with her at every visit in clinic. I have explained to them numerous times in clinic that I am scared she is progressing on therapy and there will be very little to offer once she does truly show progression. Her most recent scans confirm that she is having progressive pulmonary metastases. I do not think being overly aggressive with her at this point is of any real benefit to her quality of life. We will try to reach out and discuss this with the sister and hopefully we can make her supportive care only with comfort measures. Current Visit: Yes (2) Acute renal failure Problem details: Most likely ATN from hypotensive/ischemic ATN. No acute indication for dialysis. Respiratory acidosis not amenable to correction with dialysis. Status: Acute Current Visit: Yes (3) Altered mental status Status: Acute Current Visit: Yes (4) History of pulmonary embolus (PE) Status: Acute Current Visit: Yes History of Present Illness History of present illness: Ms. Mesa is a 81 year old female with metastatic breast cancer who we have been managing with antiestrogen therapy and most recently started her on a new oral agent called Ibrance. She is recently shown signs of progression over the last few months with an increasing tumor marker. Recent imaging confirmed worsening pulmonary metastases. She is currently admitted with what appears to be shock of unknown etiology at this time. Her prognosis is very poor from just a cancer standpoint. She is requiring vasopressor support and is on BiPAP. I do not see much advantage to her long-term survival by being too aggressive with her at this point. My plan in clinic was to likely convert her to supportive care only once we found definitive progression. Her recent scans have confirmed this. Home Medications Medication Instructions Recorded Confirmed Type Gabapentin [Gabapentin] 600 mg PO TID 10/15/16 06/19/17 History Letrozole [Letrozole] 2.5 mg PO DAILY 10/15/16 06/19/17 History Levothyroxine Sodium 50 mcg PO QAM 10/15/16 06/19/17 History Simvastatin [Zocor] 40 mg PO DAILY 10/15/16 06/19/17 History Temazepam [Temazepam] 30 mg PO BEDTIME 10/15/16 06/19/17 History Aspirin EC Tab 81 mg PO DAILY 06/19/17 06/19/17 History Furosemide Tab [Lasix Tab] 20 mg PO DAILY 06/19/17 06/19/17 History HydrOXYzine PAMOATE CAP [Vistaril 25 mg PO Q8H PRN 06/19/17 06/19/17 History Cap] Hydrocodone/Acetaminophen 1 each PO DAILY PRN 06/19/17 06/19/17 History [Hydrocodon-Acetaminophn 10-325] Lisinopril 20 mg PO DAILY 06/19/17 06/19/17 History Morphine Sulfate [Morphine Sulfate 15 mg PO BID 06/19/17 06/19/17 History ER] Ondansetron HCl 4 mg PO Q8H PRN 06/19/17 06/19/17 History Propranolol HCl [Propranolol Tab] 40 mg PO BID 06/19/17 06/19/17 History Sertraline HCl 50 mg PO DAILY 06/19/17 06/19/17 History metFORMIN [Glucophage] 500 mg PO BID 06/19/17 06/19/17 History Allergies Allergy/AdvReac Type Severity Reaction Status Date / Time peach Allergy Unknown/Unable Verified 10/15/16 15:44 to obtain Medical,Surgical,& Family Hx - Medical History Cardio: History of: Hypertension Endocrine: History of: Diabetes Mellitus (NIDDM) Respiratory: History of: Obstructive Sleep Apnea Other: History of: Cancer (breast) - Surgical History Neurologic Surgeries: Patient denies: Neurologic Surgery - Family History Family History: Reports;: Family Cancer, Family Heart Disease, Family Hypertension - Social History Smoking Status: Never smoker Frequency of Alcohol Use: None Type of Drug Use: None ROS unobtainable: due to mental status Exam - Constitutional Vitals: Period Temp Pulse Resp BP Sys/Liu Pulse Ox Last 24 Hr 96.9 F-98.2 F 68-85 10-23 65-156/36-105 92-100 General appearance: mild distress, over weight - Head Head Exam: Present: normocephalic, atraumatic - Eye Eye Exam: Absent: scleral icterus - Neck Neck exam: Absent: lymphadenopathy - Respiratory Respiratory exam: Present: CTAB. Absent: wheezes - Cardiovascular Cardiovascular exam: Present: RRR. Absent: irregular rhythm, JVD - GI/Abdominal GI/Abdominal exam: Present: soft. Absent: firm, mass - Neurological Exam Neurological exam: Present: altered - Psychiatric Psychiatric exam: Present: agitated - Skin Skin exam: Present: warm, dry Results - Labs CBC & BMP: 06/21/17 04:17 06/21/17 04:17 Lab Results: I have reviewed the past 24 hour labs - Diagnostic Findings Procedure: Chest x-ray: report reviewed by me, CT - chest: report reviewed by me
--- NOTE | 2017-06-21 07:48 | Pulmonology Progress Note ---
Pulmonary - PN: Subj Interval history: Patient is an 81-year-old black lady that has metastatic breast cancer. She came in with hypotension and renal insufficiency. She has been having nausea and vomiting. Her CT suggests worsening lesions in her lungs. She apparently does have a history of having pulmonary emboli in the past. She has not been on anticoagulation. She has required pressors for her blood pressure. She is on steroids and broad-spectrum antibiotics. She has been on BiPAP and seems to be breathing relatively well at present. She does respond this morning and is in no significant respiratory distress. Exam (Progress Note) - Constitutional Vitals: Period Temp Pulse Resp BP Sys/Liu Pulse Ox Last 24 Hr 96.9 F-98.2 F 68-85 10-23 65-156/36-105 92-100 Exam: General appearance: mild distress (The patient is responding okay and looks comfortable on BiPAP. She still seems to be breathing okay at present), morbidly obese - Head Head exam: Present: normal inspection, normocephalic - Eye Eye exam: Present: EOMI. Absent: scleral icterus Pupils: Present: NATE - ENT ENT exam: Present: normal exam - Neck Neck exam: Absent: lymphadenopathy, thyromegaly - Respiratory Respiratory exam: Present: She has fair breath sounds bilaterally with good air movement and only slight rhonchi present. - Cardiovascular Cardiovascular exam: Present: regular rate and rhythm. Absent: gallop, systolic murmur - GI/Abdominal GI/Abdominal exam: Present: distended, hypoactive bowel sounds, soft. Absent: organomegaly, tenderness - Extremities Exam Extremities exam: Absent: calf tenderness, edema - Neurological Exam Neurological exam: Present: alert, oriented X3, she still responds easily. - Psychiatric Psychiatric exam: Present: normal affect - Skin Skin exam: Present: warm, dry Results - Labs CBC & BMP: 06/21/17 04:17 06/21/17 04:17 Assessment and Plan (1) Acute renal failure Problem details: Most likely ATN from hypotensive/ischemic ATN. No acute indication for dialysis. Respiratory acidosis not amenable to correction with dialysis. Status: Acute Assessment and plan: The patient's creatinine is up to 4.0. Her urine output is very low. Current Visit: Yes (2) Metastatic breast cancer Problem details: Poor prognosis, progressing. Status: Acute Assessment and plan: Patient is undergoing chemotherapy for metastatic breast cancer. It is unclear if the lesions in her lungs are metastases or inflammation. She apparently has extensive bone metastasis. Current Visit: Yes (3) Hypovolemic shock Status: Acute Assessment and plan: The patient is hypotensive and is getting fluids and pressors. Her blood pressure is a little better this morning. Current Visit: Yes (4) Diabetes Status: Acute Assessment and plan: Her glucose is 256 yesterday. Current Visit: Yes (5) Respiratory failure Status: Acute Assessment and plan: The patient is overweight and does have some CO2 retention. She looks comfortable on BiPAP. She does have bilateral infiltrates. Her oxygenation has been stable so far. I would not recommend placing her on the ventilator. Current Visit: Yes (6) Bilateral pulmonary infiltrates on chest x-ray Status: Acute Assessment and plan: The patient has bilateral infiltrates that could be pulmonary metastasis or inflammation. She will be covered for infection and will add steroids. Her prognosis is very poor. Current Visit: Yes
[2017-06-21] MEDS: PHENYLEPHRINE INJ 80 MG in SODIUM CHLORIDE 0.9% 242 ML IV SCH ×2 (09:22→15:05)
[2017-06-21] MEDS: MEROPENEM 500 MG in SODIUM CHLORIDE 0.9% 100 ML IV SCH ×2 (09:32→21:43)
--- NOTE | 2017-06-21 13:49 | Hospitalist Progress Note ---
Assessment and Plan (1) Comfort measures only status Status: Acute Assessment and plan: Mrs Mesa has sepsis on top of metastatic breast cancer and her family has decided to provide her with comfort measures only. She will be moved to a room on the floor so that they can be with her. She is comfortable at this time, minimally responsive. I will leave the BIPAP in place as long as it seems to provide comfort. Current Visit: Yes Hospitalist: Subjective Interval history: This morning Dr Nava her oncologist spoke with her daughters and sister to explain that the metastatic breast cancer is life limiting and that he thinks we should treat her with comfort measures only. They discussed it and called back to say they understood and were in agreement with that plan. I spoke with her daughter to confirm this and she wants us to move her to a room and keep her comfortable. We will stop the pressors, antibiotics, etc when she is moved to a room. Exam - Constitutional Vitals: Period Temp Pulse Resp BP Sys/Liu Pulse Ox Last 24 Hr 96.9 F-98.6 F 68-82 10-23 85-156/59-105 93-97 General appearance: no acute distress, over weight - Eye Eye exam: Absent: conjunctival injection, scleral icterus - Respiratory Respiratory exam: Present: rhonchi - Cardiovascular Cardiovascular exam: Present: regular rate and rhythm - GI/Abdominal GI/Abdominal exam: Present: hypoactive bowel sounds, soft - Extremities Exam Extremities exam: Absent: edema Results - Labs CBC & BMP: 06/21/17 04:17 06/21/17 04:17 Lab Results: I have reviewed the past 24 hour labs
[2017-06-21] MEDS: NOREPINEPHRINE 8 MG in SODIUM CHLORIDE 0.9% 242 ML IV SCH (15:06)
--- NOTE | 2017-06-21 19:44 | Nephrology Progress Note ---
Nephrology - PN: Subj Interval history: The patient is now on comfort measures. She remains on BiPAP ventilation. Discussed with family that we will discontinue IV fluids as patient seems to be retaining more fluid. No other recommendations at this time. Will sign off please call if needed. Exam (PN)-Nephrology - Vital Signs Vital signs: Period Temp Pulse Resp BP Sys/Liu Pulse Ox Last 24 Hr 96.9 F-98.6 F 68-81 13-23 60-156/41-105 83-97 - General Appearance General appearance: chronically ill Neck: supple Respiratory: clear Cardiology: regular rate, regular rhythm Gastrointestinal: normoactive bowel sounds - Lab 06/21/17 04:17 06/21/17 04:17 Most recent lab results ABG pH 7.207 (7.35-7.45) L* D 06/20/17 05:20 ABG pCO2 54.0 MM HG (35-48) H 06/20/17 05:20 ABG pO2 66.3 MM HG (80-95) L 06/20/17 05:20 ABG HCO3 18.6 MMOL/L (20-26) L 06/20/17 05:20 ABG O2 Saturation 90.3 % (95-100) L 06/20/17 05:20 Calcium 7.4 MG/DL (8.5-10.1) L 06/21/17 04:17 Magnesium 1.8 MG/DL (1.8-2.4) 06/20/17 10:34 Assessment and Plan (1) Comfort measures only status Status: Acute Current Visit: Yes (2) Metastatic breast cancer Problem details: Poor prognosis, progressing. Status: Chronic Assessment and plan: Comfort measures Current Visit: Yes (3) Diabetes Status: Chronic Current Visit: Yes Qualifiers: Diabetes mellitus type: type 2
[2017-06-22] MEDS: INSULIN REGULAR 100 UNIT/ML SUBCUT SCH ×3 (01:06→13:37)
[2017-06-22 05:20] LABS: Hematocrit 28.5 VOL% (35.7-47.0); Hemoglobin 9.7 GM/DL (12.0-16.0); Immature Granulocytes % 1.5 %; Immature Granulocytes Absolute 0.06 #; Lymphocytes # 0.5 10*3/uL (1.4-4.0); Lymphocytes % 13.9 % (21.3-54.2); Mean Corpuscular Hemoglobin 30 PG (27-34); Mean Platelet Volume 11.1 FL (9.6-12.0); Monocytes # 0.1 10*3/uL (0.11-0.8); Monocytes % 2.3 % (1.7-12.7); NRBC # 0.19 10*3/uL; Neutrophils # 3.2 10*3/uL (1.4-7.4); Neutrophils % 82.3 % (38.7-73.9); Platelet Count 147 T/CUMM (130-400); Red Blood Count 3.24 MC/CUMM (3.8-5.5); Red Cell Distribution Width 17.3 % (9.3-17.3); White Blood Count 3.9 T/CUMM (4-12)
[2017-06-22 05:40] LABS: Giant Platelets Few; Hypochromasia 1+; Microcytosis 1+; Ovalocytes Slight; Platelet Estimate Normal
[2017-06-22 05:43] LABS: Calcium 6.9 MG/DL (8.5-10.1); Magnesium 1.7 MG/DL (1.8-2.4); Osmolality,Calculated 298.3 MOS/KG (273-304); Potassium 4.7 MMOL/L (3.5-5.1)
--- NOTE | 2017-06-22 08:35 | XRay Report ---
XR chest 1V portable Indication: Respiratory distress Comparison: 19 June 2017 Findings: The heart and mediastinum are stable in size and configuration. The pulmonary vascularity is increased similar to previous. There is increasing left lower lung alveolar density. No other lung infiltrates, effusions, pneumothorax or other abnormality is demonstrated. Impression: Increasing left lower lung alveolar density, could indicate pneumonia. PROCEDURE INTERPRETED AT [facility] DEPARTMENT OF RADIOLOGY Final Report Signed by: Dr. Travis Streeter
--- NOTE | 2017-06-22 09:33 | Pulmonology Progress Note ---
Pulmonary - PN: Subj Interval history: Patient is an 81-year-old black lady that has metastatic breast cancer. She came in with hypotension and renal insufficiency. She has been having nausea and vomiting. Her CT suggests worsening lesions in her lungs. She apparently does have a history of having pulmonary emboli in the past. She has not been on anticoagulation. She has required pressors for her blood pressure. She is on steroids and broad-spectrum antibiotics. She has been on BiPAP and seems to be breathing relatively well at present. Yesterday the family decided to just move her to a room and keep her comfortable. She is still on BiPAP but she is awake and talking. She has not had much respiratory distress at all. Her chest x-ray looks a little better. Exam (Progress Note) - Constitutional Vitals: Period Temp Pulse Resp BP Sys/Liu Pulse Ox Last 24 Hr 96.5 F-98.6 F 68-86 12-19 60-163/41-116 16-96 Exam: General appearance: mild distress (The patient is responding better and looks like she is breathing comfortably at present.) - Head Head exam: Present: normal inspection, normocephalic - Eye Eye exam: Present: EOMI. Absent: scleral icterus Pupils: Present: NATE - ENT ENT exam: Present: normal exam - Neck Neck exam: Absent: lymphadenopathy, thyromegaly - Respiratory Respiratory exam: Present: She has fair breath sounds bilaterally with good air movement and only slight rhonchi present. She is not having much distress at all. - Cardiovascular Cardiovascular exam: Present: regular rate and rhythm. Absent: gallop, systolic murmur - GI/Abdominal GI/Abdominal exam: Present: distended, hypoactive bowel sounds, soft. Absent: organomegaly, tenderness - Extremities Exam Extremities exam: Absent: calf tenderness, edema - Neurological Exam Neurological exam: Present: alert, oriented X3, she still responds easily. She is talking some now. - Psychiatric Psychiatric exam: Present: normal affect - Skin Skin exam: Present: warm, dry Results - Labs CBC & BMP: 06/22/17 04:25 06/22/17 04:25 - Diagnostic Findings Procedure: Chest x-ray: image reviewed by me, report reviewed by me (Chest x- ray shows cardiomegaly and prominent pulmonary arteries. The infiltrates look a little better) Assessment and Plan (1) Acute renal failure Problem details: Most likely ATN from hypotensive/ischemic ATN. No acute indication for dialysis. Respiratory acidosis not amenable to correction with dialysis. Status: Acute Assessment and plan: The patient's creatinine is 3.8 today. Her urine output has improved. Current Visit: Yes (2) Metastatic breast cancer Problem details: Poor prognosis, progressing. Status: Chronic Assessment and plan: Patient is undergoing chemotherapy for metastatic breast cancer. It is unclear if the lesions in her lungs are metastases or inflammation. She apparently has extensive bone metastasis. The family wants comfort measures now. Current Visit: Yes (3) Hypovolemic shock Status: Acute Assessment and plan: The patient was hypotensive but she is doing better now. Current Visit: Yes (4) Diabetes Status: Chronic Assessment and plan: Her glucose is 257 today. Current Visit: Yes Qualifiers: Diabetes mellitus type: type 2 (5) Respiratory failure Status: Acute Assessment and plan: The patient is overweight and does have some CO2 retention. She looks comfortable on BiPAP. She looks like she is breathing a little better now and will try her on oxygen. Current Visit: Yes (6) Bilateral pulmonary infiltrates on chest x-ray Status: Acute Assessment and plan: The patient has bilateral infiltrates that could be pulmonary metastasis or inflammation. She will be covered for infection and will add steroids. Her prognosis is very poor. Current Visit: Yes
--- NOTE | 2017-06-22 10:00 | Hospitalist Progress Note ---
Assessment and Plan (1) Metastatic breast cancer Problem details: Poor prognosis, progressing. Status: Chronic Assessment and plan: The patient has widely metastatic breast cancer. The patient's family has requested transition to comfort measures. Goals of care are presently being met with the absence of anxiety pain or dyspnea. The patient is using BiPAP to reduce dyspnea. Current Visit: Yes (2) Respiratory failure Status: Acute Current Visit: Yes Hospitalist: Subjective Interval history: The patient is resting quietly in her room. The patient's family made the decision for comfort measures only yesterday afternoon. The patient does not express any shortness of breath, anxiety, or pain on the present regimen. I reviewed the patient's condition with her daughter at the bedside who seemed pleased that she was in a regular room now. Exam - Constitutional Vitals: Period Temp Pulse Resp BP Sys/Liu Pulse Ox Last 24 Hr 96.5 F-98.6 F 68-86 12-19 60-163/41-116 16-96 - ENT ENT exam: Present: normal exam - Respiratory Respiratory exam: Present: prolonged expiratory phase - Cardiovascular Cardiovascular exam: Present: regular rate and rhythm - GI/Abdominal GI/Abdominal exam: Present: hypoactive bowel sounds Results - Labs CBC & BMP: 06/22/17 04:25 06/22/17 04:25 Lab Results: I have reviewed the past 24 hour labs
[2017-06-22] MEDS: MEROPENEM 500 MG in SODIUM CHLORIDE 0.9% 100 ML IV SCH (14:07)
--- NOTE | 2017-06-23 07:58 | Oncology Progress Note ---
Assessment and Plan (1) Metastatic breast cancer Status: Acute Current Visit: Yes (2) Acute renal failure Problem details: Most likely ATN from hypotensive/ischemic ATN. No acute indication for dialysis. Respiratory acidosis not amenable to correction with dialysis. Status: Acute Current Visit: Yes (3) Altered mental status Status: Acute Current Visit: Yes (4) History of pulmonary embolus (PE) Status: Acute Current Visit: Yes Oncology Subjective PN Interval history: Ms. Mesa was resting comfortably in her room this morning. She was asleep with her BiPAP machine on. There is no family present. I did not wake her up. My plan from an oncology standpoint is to continue with comfort measures only. If she gets to the point where she can be discharged out of the hospital she should be set up with hospice care. This may have to be a residential setting if her family are unable to care for her at home. At this point in time , it appears it her continuous need of BiPAP is the biggest limiting factor of getting her out of the hospital. If there are any questions I can answer, please feel free to call me. Exam - Constitutional Vitals: Period Temp Pulse Resp BP Sys/Liu Pulse Ox Last 24 Hr 97.0 F-97.8 F 75-104 14-22 97-163/52-77 91-96 General appearance: no acute distress, over weight - Head Head Exam: Present: normal inspection, normocephalic - Eye Eye Exam: Absent: scleral icterus - Respiratory Respiratory exam: Present: CTAB. Absent: wheezes - Cardiovascular Cardiovascular exam: Present: RRR. Absent: JVD - GI/Abdominal GI/Abdominal exam: Present: soft. Absent: ascites, distended, mass - Skin Skin exam: Present: warm, dry Results - Labs CBC & BMP: 06/22/17 04:25 06/22/17 04:25 Lab Results: I have reviewed the past 24 hour labs
--- NOTE | 2017-06-23 14:29 | Hospitalist Progress Note ---
Assessment and Plan (1) Metastatic breast cancer Problem details: Poor prognosis, progressing. Status: Deleted Assessment and plan: The patient has widely metastatic breast cancer. The patient's family has requested transition to comfort measures. Goals of care are presently being met with the absence of anxiety pain or dyspnea. BiPAP will be removed and replaced with oxygen by nasal cannula. The patient continues on comfort measures only Current Visit: Yes (2) Respiratory failure Status: Acute Current Visit: Yes Hospitalist: Subjective Interval history: The patient is awake and conversing in short sentences at present. Her male family member is at the bedside and request that the BiPAP be removed and replaced with nasal prongs oxygen. The patient did not complain of pain or anxiety. Exam - Constitutional Vitals: Period Temp Pulse Resp BP Sys/Liu Pulse Ox Last 24 Hr 96.1 F-99 F 72-93 14-22 86-163/52-77 91-96 General appearance: no acute distress - Respiratory Respiratory exam: Present: prolonged expiratory phase - Cardiovascular Cardiovascular exam: Present: regular rate and rhythm - GI/Abdominal GI/Abdominal exam: Present: hypoactive bowel sounds Results - Labs CBC & BMP: 06/22/17 04:25 06/22/17 04:25 Lab Results: I have reviewed the past 24 hour labs
--- NOTE | 2017-06-23 15:48 | Pulmonology Progress Note ---
Pulmonary - PN: Subj Interval history: Patient is an 81-year-old black lady that has metastatic breast cancer. She came in with hypotension and renal insufficiency. She has been having nausea and vomiting. Her CT suggests worsening lesions in her lungs. She apparently does have a history of having pulmonary emboli in the past. She has not been on anticoagulation. She has required pressors for her blood pressure. She is on steroids and broad-spectrum antibiotics. She has been on BiPAP and seems to be breathing relatively well at present. She says she had a fairly good night also try to sit up a little. She says she is does get short of breath easily. She wants to try oxygen and not the BiPAP now. He does seem to be more alert now. Exam (Progress Note) - Constitutional Vitals: Period Temp Pulse Resp BP Sys/Liu Pulse Ox Last 24 Hr 96.1 F-99 F 72-93 14-22 86-163/52-77 91-96 Exam: General appearance: mild distress (The patient is responding better and looks like she is breathing comfortably at present.) - Head Head exam: Present: normal inspection, normocephalic - Eye Eye exam: Present: EOMI. Absent: scleral icterus Pupils: Present: NATE - ENT ENT exam: Present: normal exam - Neck Neck exam: Absent: lymphadenopathy, thyromegaly - Respiratory Respiratory exam: Present: She has fair breath sounds bilaterally with good air movement and only slight rhonchi present. She does have a weak cough. - Cardiovascular Cardiovascular exam: Present: regular rate and rhythm. Absent: gallop, systolic murmur - GI/Abdominal GI/Abdominal exam: Present: distended, hypoactive bowel sounds, soft. Absent: organomegaly, tenderness - Extremities Exam Extremities exam: Absent: calf tenderness, edema - Neurological Exam Neurological exam: Present: alert, oriented X3, she still responds easily. She is talking some now. - Psychiatric Psychiatric exam: Present: normal affect - Skin Skin exam: Present: warm, dry Results - Labs CBC & BMP: 06/22/17 04:25 06/22/17 04:25 Assessment and Plan (1) Acute renal failure Problem details: Most likely ATN from hypotensive/ischemic ATN. No acute indication for dialysis. Respiratory acidosis not amenable to correction with dialysis. Status: Acute Assessment and plan: The patient's creatinine is 3.8 today. Her urine output has improved. Current Visit: Yes (2) Metastatic breast cancer Problem details: Poor prognosis, progressing. Status: Deleted Assessment and plan: Patient is undergoing chemotherapy for metastatic breast cancer. It is unclear if the lesions in her lungs are metastases or inflammation. She apparently has extensive bone metastasis. The family wants comfort measures now. Current Visit: Yes (3) Hypovolemic shock Status: Acute Assessment and plan: The patient was hypotensive but she is doing better now. Current Visit: Yes (4) Diabetes Status: Chronic Assessment and plan: Her glucose is 190 today. Current Visit: Yes Qualifiers: Diabetes mellitus type: type 2 (5) Respiratory failure Status: Acute Assessment and plan: The patient is overweight and does have some CO2 retention. She looks comfortable on BiPAP. She looks like she is breathing a little better now and will try her on oxygen. She is very ill but seems to be quite comfortable today. Current Visit: Yes (6) Bilateral pulmonary infiltrates on chest x-ray Status: Acute Assessment and plan: The patient has bilateral infiltrates that could be pulmonary metastasis or inflammation. She will be covered for infection and will add steroids. She looks like she is breathing a little better today. Current Visit: Yes
[2017-06-23] MEDS: MORPHINE 2 MG/1 ML SYRINGE IV PRN (22:39)
--- NOTE | 2017-06-24 09:56 | Pulmonology Progress Note ---
Pulmonary - PN: Subj Interval history: Patient is an 81-year-old black lady that has metastatic breast cancer. She came in with hypotension and renal insufficiency. She has developed bilateral infiltrates and was having some respiratory distress. Now she is actually a little more comfortable. She is off the BiPAP and on low-flow oxygen. She is awake and talking to her family. She has been able to take in some food. She says she is comfortable. She apparently is going to continue comfort care and possibly home with hospice. Exam (Progress Note) - Constitutional Vitals: Period Temp Pulse Resp BP Sys/Liu Pulse Ox Last 24 Hr 97.3 F-99 F 97-147 16-20 105-143/62-91 89-99 Exam: General appearance: mild distress (The patient is alert and talking and comfortable on low-flow oxygen.) - Head Head exam: Present: normal inspection, normocephalic - Eye Eye exam: Present: EOMI. Absent: scleral icterus Pupils: Present: NATE - ENT ENT exam: Present: normal exam - Neck Neck exam: Absent: lymphadenopathy, thyromegaly - Respiratory Respiratory exam: Present: She has fair breath sounds bilaterally with good air movement and only slight rhonchi present. She does have a weak cough. She is breathing comfortably at present. - Cardiovascular Cardiovascular exam: Present: regular rate and rhythm. Absent: gallop, systolic murmur - GI/Abdominal GI/Abdominal exam: Present: distended, hypoactive bowel sounds, soft. Absent: organomegaly, tenderness - Extremities Exam Extremities exam: Absent: calf tenderness, edema - Neurological Exam Neurological exam: Present: alert, oriented X3, she still responds easily. She is talking some now. - Psychiatric Psychiatric exam: Present: normal affect - Skin Skin exam: Present: warm, dry Results - Labs CBC & BMP: 06/22/17 04:25 06/22/17 04:25 Assessment and Plan (1) Acute renal failure Problem details: Most likely ATN from hypotensive/ischemic ATN. No acute indication for dialysis. Respiratory acidosis not amenable to correction with dialysis. Status: Acute Assessment and plan: The patient's creatinine is 3.8 today. Her urine output has improved. She is not a dialysis candidate Current Visit: Yes (2) Metastatic breast cancer Problem details: Poor prognosis, progressing. Status: Deleted Assessment and plan: Patient has metastatic breast cancer and probably will be hospice care now. Current Visit: Yes (3) Hypovolemic shock Status: Acute Assessment and plan: The patient was hypotensive but she is doing better now. Her blood pressure and heart rate are stable at present. Current Visit: Yes (4) Diabetes Status: Chronic Assessment and plan: Her glucose has been reasonably stable. Current Visit: Yes Qualifiers: Diabetes mellitus type: type 2 (5) Respiratory failure Status: Acute Assessment and plan: The patient is overweight and does have some CO2 retention. She has done fairly well with treatment and her breathing is actually better now. She is comfortable on low-flow oxygen. She will probably go home with hospice care. I will sign off at the present time. Current Visit: Yes (6) Bilateral pulmonary infiltrates on chest x-ray Status: Acute Assessment and plan: The patient has bilateral infiltrates that could be pulmonary metastasis or inflammation. Clinically she is doing a little better and is breathing comfortably. Current Visit: Yes
[2017-06-24] MEDS: MORPHINE 2 MG/1 ML SYRINGE IV PRN ×3 (10:51→22:56)
--- NOTE | 2017-06-24 11:23 | Hospitalist Progress Note ---
Assessment and Plan (1) Metastatic breast cancer Problem details: Poor prognosis, progressing. Status: Deleted Assessment and plan: The patient has widely metastatic breast cancer. The patient's family has requested transition to comfort measures. Goals of care are presently being met with the absence of anxiety pain or dyspnea. BiPAP has now been removed and the patient is comfortable on nasal prongs oxygen. I am going to ask the manager of case management to consult with hospice. Current Visit: Yes (2) Respiratory failure Status: Acute Current Visit: Yes Hospitalist: Subjective Interval history: The patient is resting quietly in the room today. She is receiving nasal prongs oxygen. The patient was alert and conversive in short sentences. The patient's family is at the bedside and the patient appears comfortable. The patient denies pain. Exam - Constitutional Vitals: Period Temp Pulse Resp BP Sys/Liu Pulse Ox Last 24 Hr 97.3 F-99 F 97-147 16-20 105-143/62-91 89-99 General appearance: mild distress - Respiratory Respiratory exam: Present: clear to auscultation bilaterally, prolonged expiratory phase - Cardiovascular Cardiovascular exam: Present: regular rate and rhythm - GI/Abdominal GI/Abdominal exam: Present: hypoactive bowel sounds Results - Labs CBC & BMP: 06/22/17 04:25 06/22/17 04:25
[2017-06-25] MEDS ORDERED: DEXTROSE 50% 25 GM/50 ML SYRINGE IV PRN (08:30)
--- NOTE | 2017-06-25 09:30 | Hospitalist Progress Note ---
Assessment and Plan (1) Metastatic breast cancer Problem details: Poor prognosis, progressing. Status: Deleted Assessment and plan: The patient has widely metastatic breast cancer. The patient's family has requested transition to comfort measures. Goals of care are presently being met with the absence of anxiety pain or dyspnea. BiPAP has now been removed and the patient is comfortable on nasal prongs oxygen. I am going to ask the manager case management to continue efforts to arrange hospice with plan of home tomorrow. Current Visit: Yes (2) Respiratory failure Status: Acute Current Visit: Yes Hospitalist: Subjective Interval history: The patient is awake and alert today. She is able to converse in short sentences. I had family conference with the patient and her daughter who was present in the room. We discussed the patient's metastatic breast tumor and her limited life expectancy. We discussed that the oncologist has discontinued active cancer treatment. I recommended that the patient except hospice concept of care and she endorsed that. I recommended to the family that they accept hospice program and they are willing to discuss that further with the hospice today. Our target is for discharge home with home health hospice tomorrow. Exam - Constitutional Vitals: Period Temp Pulse Resp BP Sys/Liu Pulse Ox Last 24 Hr 96.3 F-97.8 F 67-109 16-22 133-187/69-97 86-95 General appearance: no acute distress - Respiratory Respiratory exam: Present: clear to auscultation bilaterally - Cardiovascular Cardiovascular exam: Present: regular rate and rhythm - GI/Abdominal GI/Abdominal exam: Present: hypoactive bowel sounds Results - Labs CBC & BMP: 06/22/17 04:25 06/22/17 04:25 Lab Results: I have reviewed the past 24 hour labs
[2017-06-25] MEDS: MORPHINE 2 MG/1 ML SYRINGE IV PRN ×3 (09:48→21:42)
[2017-06-26] MEDS: MORPHINE 2 MG/1 ML SYRINGE IV PRN (06:47)
[2017-06-26 08:23] VITALS: BP 112/51
--- NOTE | 2017-06-26 11:12 | Discharge Summary ---
Hospital Course - Hospital Course Hospital Course: The patient was admitted to the hospital with respiratory failure and required mechanical ventilation. The patient has history of breast cancer widely metastatic. The patient had been on chemotherapy program. The patient's oncologist judged that her chemotherapy program was no longer worthwhile due to poor performance status. He recommended that we pursue comfort measures and hospice program. The patient's family accepted that comfort measures resuscitation status and the patient was weaned from the ventilator. The patient was weaned from pressor agents and began to show improvement. She returned to consciousness and made active decisions about her care. The patient decided she wished to go home with hospice. The family was accepting of her decision to go home and arrangements were made and I coordinate care with egg caser. On the date of discharge, the chest has moderate upper airway congestion and the patient is breathing comfortably. Heart has regular rate and rhythm. Extremities show 2+ edema. I screen the patient for tobacco smoking and she is a previous smoker. I gave her 4 minutes encouragement to avoid tobacco and further tobacco education. The patient's medications were reconciled at admission and on discharge. 34 minutes were required for discharge procedures, education, documentation, and reconciliation of medications on the date of discharge. - Time spent with patient Time with patient DS: Greater than 30 minutes Diagnosis - Discharge Diagnosis (1) Metastatic breast cancer Status: Chronic (2) Respiratory failure Status: Resolved Discharge Plan - Discharge Data Disposition: Hospice - Home Condition at Discharge: Guarded Discharge Diet: regular diet Activity: resume usual activities as tolerated - Discharge Medications Continue Gabapentin 600 mg PO TID Levothyroxine Sodium 50 mcg PO QAM Letrozole 2.5 mg PO DAILY metFORMIN [Glucophage] 500 mg PO BID Sertraline HCl 50 mg PO DAILY Furosemide Tab [Lasix Tab] 20 mg PO DAILY Morphine Sulfate [Morphine Sulfate ER] 15 mg PO BID #60 Ondansetron HCl 4 mg PO Q8H PRN #100 PRN Reason: Nausea Temazepam 30 mg PO BEDTIME #60 Lisinopril 20 mg PO DAILY Hydrocodone/Acetaminophen [Hydrocodon-Acetaminophn 10-325] 1 each PO DAILY PRN #30 PRN Reason: Pain Discontinued Simvastatin [Zocor] 40 mg PO DAILY Propranolol HCl [Propranolol Tab] 40 mg PO BID HydrOXYzine PAMOATE CAP [Vistaril Cap] 25 mg PO Q8H PRN PRN Reason: Anxiety Aspirin EC Tab 81 mg PO DAILY - Follow Up or Referral - Forms/Instructions Exam - Constitutional Vitals: Period Temp Pulse Resp BP Sys/Liu Pulse Ox Last 24 Hr 96.1 F-97.6 F 63-112 16-24 112-159/51-94 82-98 DS: Provider Date of admission: 06/19/17 20:22 Primary care physician: . No PCP Attending physician on admission: Shima Vizcaino MD Consults: 06/19/17 21:42 Consult to Physician [CONS] Routine Comment: Consulting Provider: Alden Houser Consult to Specialist Group: Cardiology When should Consulting Provider be notified: In am Person Notified: Dr. Mitchell Date Notified: 06/20/17 Time Notified: 08:05 Consult Notification Comment: He will come back to see her. Consult to Physician [CONS] Routine Comment: Consulting Provider: Teo Eller Consult to Specialist Group: Nephrology When should Consulting Provider be notified: In am Person Notified: Dr. Eller Date Notified: 06/20/17 Time Notified: 09:12 Consult Notification Comment: He has already seen her records and he will see her later today. 06/19/17 22:55 Consult to Pastoral Services [CONS] Routine Comment: Pastoral Screen: Request Transmission And Coordination Engineer Visit Pastoral Screen Source of Request: Patient 06/20/17 08:52 Consult to Physician [CONS] Routine Comment: Consulting Provider: Jorge Alberto Lynch Consult to Specialist Group: Pulmonology When should Consulting Provider be notified: Now Person Notified: Dr. Lynch Date Notified: 06/20/17 Time Notified: 09:08 Consult Notification Comment: He will see her later today. 06/21/17 07:09 Consult to Physician [CONS] Routine Comment: Consulting Provider: Sidney Reeves Consulting Provider Notified: Yes When should Consulting Provider be notified: Now Consult to Specialist Group: Oncology When should Consulting Provider be notified: Now Person Notified: CASSY Date Notified: 06/21/17 Time Notified: 08:45 Consult Notification Comment: DR. REEVES ALREADY SEEN PT THIS AM 06/24/17 11:21 Consult to Case Mgmt/Social Srvs [CONS] Routine Reason for Case Mgmt/Social Srvs: Hospice Referral Discharging clinician: Justin Sahni MD
--- NOTE | 2017-07-05 09:06 | Physician Query Form ---
CLICK EDIT DOCUMENT TO SELECT QUERY ANSWER --> OK --> SIGN Anisa King RN Clinical Paper Reclaiming Machine Operator W) [phone] (f) [phone] [email or web address] PROVIDERS: Make your selection(s) from the choices in EACH section by typing an "x" and enter comments in the comment section. Please use your independent medical judgment in providing your response. This request does not imply that any particular answer is desired or expected. CLINICAL INDICATORS: (Providers should not edit this section) The below diagnosis was documented in the record, but is not consistently noted in subsequent documentation. Diagnosis: Sepsis Pt. admitted with hypovolemic shock. Based on documentation of "white count is not high but patient is hypothermic so sepsis can not be completely ruled out" and "sepsis on top of metastatic breast cancer". Temp of 96.8, blood pressure of 56/40, WBC of 3.6, and lactic acid level of 2.3. Pt. treated with IV Merrem and Vancomycin. Please clarify the following: ( X) The above diagnosis was monitored, evaluated, and/or treated and is a confirmed diagnosis ( ) The above diagnosis was ruled out ( ) Other, please specify: ( ) Clinically unable to determine COMMENTS: PLEASE ALSO DOCUMENT RESPONSE IN PROGRESS NOTES AND/OR DISCHARGE SUMMARY Use of terms such as suspected, likely, or probable (associated with a specific diagnosis that is being evaluated, monitored, or treated as if it exists) are acceptable and can be restated in the discharge summary if not ruled out. MTDD
--- NOTE | 2017-07-05 09:13 | Physician Query Form ---
CLICK EDIT DOCUMENT TO SELECT QUERY ANSWER --> OK --> SIGN Anisa King RN Clinical Collections Professional W) [phone] (f) [phone] [email or web address]: Make your selection(s) from the choices in EACH section by typing an "x" and enter comments in the comment section. Please use your independent medical judgment in providing your response. This request does not imply that any particular answer is desired or expected. CLINICAL INDICATORS: (Providers should not edit this section) The below diagnosis was documented in the record, but is not consistently noted in subsequent documentation. Diagnosis: ATN Pt. admitted with hypovolemic shock. Based on documentation of "Most likely ATN from hypotensive/ischemic ATN". Creatinine on admission of 3.30 and increased to 4.00 with a GFR of 14. Pt. treated with IV fluids, Levophed, and Moses Synephrine. Blood pressure of 56/40. Please clarify the following: (x ) The above diagnosis was monitored, evaluated, and/or treated and is a confirmed diagnosis ( ) The above diagnosis was ruled out ( ) Other, please specify: ( ) Clinically unable to determine COMMENTS: PLEASE ALSO DOCUMENT RESPONSE IN PROGRESS NOTES AND/OR DISCHARGE SUMMARY Use of terms such as suspected, likely, or probable (associated with a specific diagnosis that is being evaluated, monitored, or treated as if it exists) are acceptable and can be restated in the discharge summary if not ruled out. MTDD
== END 2017-06-26 12:55 | disposition hospice, home (50) | DRG 871 ==
LOC: EDUNIT# → EDBD → N.ED 16:43 → SUATTDRO 20:22 → N.EDINP 20:22 → N.ICU 21:08 → N.4E 06-21 15:58
PROVIDERS: ADMIT Internal Medicine; ATTEND Internal Medicine